=== PATIENT | female | born 1985 | race Caucasian/White ===

== ENCOUNTER 2022-07-16 10:28 | Outpatient (CLI) | payer OTHER, SELFPAY ==
[2022-07-16 13:00] LABS: Cholesterol* 231 mg/dL (90-199); Glucose* 75 mg/dL (60-115); HDL Cholesterol* 79 mg/dL (>=50); LDL Cholesterol Calculated 128 mg/dL (<100); Triglycerides* 121 mg/dL (40-149)
== END 2022-07-16 10:29 | disposition home or self-care (01) ==
PROVIDERS: Visit Provider Physician Assistant
DX: Z01.419 Encounter for gynecological examination (general) (routine) without abnormal findings (principal); Z13.6 Encounter for screening for cardiovascular disorders; Z13.1 Encounter for screening for diabetes mellitus
CPT/HCPCS: 80061; 82947

== ENCOUNTER 2022-12-18 15:57 | Inpatient (IN) | payer OTHER, SELFPAY ==
[2022-12-17] VITALS (19 sets, daily range): BP systolic 90–116; BP diastolic 52–78; PULSE 47–80; RESP 11–54; TEMP 35.8–37; O2SAT 98–100; BMI 26.1
[2022-12-17 08:51] LABS: Ur HCG Qualitative* Negative (Negative)
[2022-12-17] MEDS: LACTATED RINGERS 1000 ML 1,000 ML 100 ML IV (09:00)
[2022-12-17] MEDS: SODIUM CHLORIDE 0.9 % (FLUSH) 10 ML SYRINGE IVF (09:00)
[2022-12-17 09:23] LABS: Hemoglobin* 13.4 gm/dL (12.0-16.0)
[2022-12-17 09:37] LABS: Creatinine* 0.9 mg/dL (0.5-1.5); Est. Creatinine Clearance* 65.84; Estimated Glomerular Filt Rate 86 ml/min
--- NOTE | 2022-12-17 10:37 | W.ANESCHARGE ---
Anesthesia Charges Start Date/Time Anesthesia Start Date: 12/17/22 Anesthesia Start Time: 11:28 Stop Date/Time Anesthesia Stop Date: 12/17/22 Anesthesia Stop Time: 15:21
[2022-12-17] MEDS: CEFAZOLIN 2 GM INJ IVP (12:01)
--- NOTE | 2022-12-17 13:26 | P.NB_ITS ---
Nerve Block Nerve Block Time Seen by Provider: 11:33 Date Seen: 12/17/22 Type of block requested by surgeon for post-operative analgesia: TAP Side: bilateral Time out performed: Yes Verification of patient name: Yes Verification of date of : Yes Site marking: site marked Name of person performing procedure: Salvador Continuous monitoring Was continuous monitoring of O2 sat, B/P, classroom monitor, recorded every 15 minutes?: Yes Procedure Checklist: sterile prep, needles and gloves Ultrasound guided. Images saved: Yes Medications given in 5ml increments after negative aspiration: Marcaine %: 0.25 mL: 30 Needle gauge: 20 and Exparel mL: 10 Patient tolerated procedure well: Yes Additional comments: Needle noted adjacent to nerve Block Charges Block Charge (with Pro Fee): TAP Bilateral Use of Ultrasound Machine for Block: Yes- US Guidance/pain block
--- NOTE | 2022-12-17 13:29 | SUR.OPER ---
MD DILATED WITH EEA SIZERS
[2022-12-17] MEDS: BUPIVACAINE 0.25% 30 ML INJECTION (14:55)
--- NOTE | 2022-12-17 15:39 | W.ANESCHARGE ---
Anesthesia Charges Start Date/Time Anesthesia Start Date: 12/17/22 Anesthesia Start Time: 11:28 Stop Date/Time Anesthesia Stop Date: 12/17/22 Anesthesia Stop Time: 15:25
--- NOTE | 2022-12-17 15:43 | W.ANESCHARGE ---
Anesthesia Charges Start Date/Time Anesthesia Start Date: 12/17/22 Anesthesia Start Time: 11:28 Stop Date/Time Anesthesia Stop Date: 12/17/22 Anesthesia Stop Time: 15:25
--- NOTE | 2022-12-17 17:08 | P.GYNPRC_ITS ---
Procedure Note Date Seen: 12/17/22 Procedure Details: PREOPERATIVE DIAGNOSIS: Symptomatic uterine fibroids POSTOPERATIVE DIAGNOSIS: Symptomatic uterine fibroids TITLE OF OPERATION: 1. Total laparoscopic hysterectomy with bilateral salpingectomy 2. Cystoscopy 3. Repair vaginal lacerations SURGEON: Veronique Vincent MD AIR DRIER MACHINE OPERATOR: Vee Ledezma MD ANESTHESIA: General IV FLUIDS: 1800 mL crystalloid ESTIMATED BLOOD LOSS: 25 mL URINE OUTPUT: Not measured FINDINGS: 1. Upon pelvic exam under anesthesia, the hymeneal ring was initially intact. Vaginal caliber was small. Cervix was normal in appearance. Uterus was mobile and anteverted, bulky and markedly enlarged. 2. Upon laparoscopy, survey of the upper abdomen revealed a normal appearance to the inferior edge of the liver, gallbladder and stomach. Bowels were grossly normal appearance, as was the appendix. Survey of the pelvis revealed 1 large, pedunculated 5 fibroid originating from the left uterine fundus, as well as numerous visible fibroids that were at least partially subserosal at multiple sites. Bilateral tubes and ovaries were normal in appearance. The cul-de-sac and bladder reflection were normal in appearance. 3. On cystoscopy performed after completion of hysterectomy, bilateral ureteral jets were noted and there was no injury to the bladder dome. 4. On vaginal exam at end of procedure, the vaginal cuff was intact. There were small lacerations at the hymenal ring at 3 and 9 o'clock, which were bleeding slightly and extended slightly into the labia minora. 5. Uterine weight was 308 g. COMPLICATIONS: None PROCEDURE IN DETAIL: Patient was taken to the operating room with IV running. She received cefazolin in preoperative prophylaxis. She was positioned in dorsal lithotomy position with her legs fully supported in Yellofin stirrups. General anesthesia was administered. She was prepped and draped in the usual sterile fashion. Pelvic exam under anesthesia was performed for the above-noted findings. Speculum was inserted. Cervix visualized and grasped along its anterior lip with a single-tooth tenaculum. Cervix was dilated with Hegar dilators to accommodate the VCare uterine manipulator. A small-sized colpotomizer cup was selected. The tip of the uterine manipulator was inserted through the cervix into the uterine cavity and the balloon was inflated. The speculum was removed. The colpotomy cup was advanced, surrounding the cervix, and the proximal occluder was moved up along the shaft of the VCare and fixed in place. This was done with difficulty due to the small caliber of the patient's vagina. Smith catheter was placed. Patient's legs were then placed in neutral position. Attention was turned to patient's abdomen. A point approximately 4 cm inferior to the mid costal area in left upper quadrant was selected for the 1st port site, given the size of the uterus and fibroid and the patient's short torso. This area was infiltrated with a small amount of Marcaine. A 5 mm infraumbilical incision was made with a scalpel and carried down to the underlying layer of fascia with the hemostat. 5 mm camera was placed within the 5 mm Fios Kii trocar, and advanced under direct visualization through the anterior abdominal wall into the peritoneal cavity, while tenting up the anterior abdominal wall. The trocar was removed. The balloon was inflated, holding the port in place. Pneumoperitoneum was achieved. Survey of the abdomen and pelvis revealed the above-noted findings. Three additional port sites were created. The first was in the patient's right lower quadrant, just superomedial to the left ASIS. The second was in the patient's left lower quadrant, just superior medial to the left ASIS. The third was in the patient's umbilicus. An 5 mm incision was made at each of these sites, after assuring that large vessels were out of harm's way. A 5 mm Fios Kii port at each of these sites, under direct visualization and without complication. The balloon on each of the four ports was inflated, holding each in place. Attention was first turned to the left fallopian tube, which was divided from the mesosalpinx, using the Thunderbeat bipolar cautery device, proceeding laterally to medially, and the tube was amputated at the left uterine cornua. This was removed through the port site and sent to pathology. This procedure was repeated on the patient's right side, and the right fallopian tube was also amputated at the cornua and removed from the patient's abdomen. This was also sent to pathology for further analysis. The left round ligament was cauterized and transected with the Thunderbeat device. The utero-ovarian ligament was cauterized and transected, and the remnants of the right broad ligament were cauterized and transected between these two structures. The bladder flap was created on the patient's left side, moving laterally to medially. The left uterine artery was skeletonized, and noted to be quite large. However, Thunderbeat was used successfully to cauterize and transect the vessel. Using the colpotomizer cup as a guide, the peritoneum and underlying stroma was dissected off the anticipated site of colpotomy over the posterior vaginal fornix. Attention was then turned to the right side of the uterus, where the right round ligament was cauterized and transected with the Thunderbeat device. The right utero-ovarian ligament was cauterized and transected, and the remnants of the right round ligament were cauterized and transected between these two structures. The bladder flap was created on the patient's right side, and dissection was carried laterally to medially, meeting the dissection where it had left off from the patient's right side. The right uterine artery was cauterized and transected with the Thunderbeat device. The bladder reflection was moved well below the colpotomizer cup anteriorly. The vaginal fornix was then entered anteriorly with monopolar cautery, using the colpotomizer cup as a guide. This device was moved along the circumference of the colpotomizer cup, until the uterus and cervix were freed from their attachments to the pelvis. The balloon tip of the VCare uterine manipulator was deflated, and the uterus was pulled into the upper portion of the patient's abdomen. A proctosizer was inserted into the patient's vagina to maintain pneumoperitoneum. The 5 mm umbilical port was removed after the balloon tip was deflated. The skin incision was elongated slightly inferiorly. The fascia was grasped with Nicky clamps, and Tucker scissors was used to further incise the fascia to accommodate an 11 mm port. An 11 mm Bobo port was then inserted and the balloon tip inflated. A 2 0 V lock suture was inserted through this port. Using laparoscopic needle drivers, the vaginal cuff was closed in a running fashion, incorporating the distal most aspects of the uterosacral ligaments bilaterally into the closure. Closure proceeded from right to left, and then an additional stitch was placed moving more medially to assure that the closure remained intact. Suture was cut. Procto Sizer was later removed from the patient's vagina. The Bobo port in the umbilicus was then removed. The fascial opening at the umbilicus was lengthened to 3 cm. While holding up the anterior abdominal wall, an Dom Endo-Catch bag was inserted into the peritoneal cavity and moved into the patient's pelvis. The strings to cinch the bag closed were held through the incision. The Bobo port was initially replaced next to the strings of this bag through enlarged incision. The bag was opened by releasing the snaps. The uterus with attached fibroid were placed within the bag. The Bobo port was again removed, and the white ring along the edge of the bag was brought back through the incision and tightened down. The small Dom retractor was placed within this bag, within the incision, and was tightened, providing extra traction. Finally, the plastic ring protecting the sides of the incision was inserted and widened manually. The uterus was grasped with thyroid Tomer clamps and was manually morcellated with a scalpel, which successfully removed the entire specimen over an extended period of time. Once the specimen was removed, the specimen bag was removed from the patient's abdomen. The fascial edges of the umbilical incision were grasped with Nicky clamps, and this incision was closed with a running suture of 0 Vicryl. The Smith catheter was removed from the bladder, and the cystoscope was assembled with saline inflow, outflow, and light cord in place. The patient was given IV sodium fluorescein prior to the cystoscopy. Cystoscope was advanced through the urethra into the bladder, and survey of the mucosa revealed a normal appearance. The bladder dome was intact. Bilateral ureteral jets were noted. Cystoscope was removed and Smith catheter replaced. Patient's legs were again placed in neutral position. Insufflator was reattached to the port and pneumoperitoneum again achieved. Survey of the pelvis revealed hemostasis. The balloons of all remaining port sites were deflated, and all ports were removed after pneumoperitoneum was released. The skin of each port site was closed in a subcuticular fashion with 4 0 Monocryl. Surgical glue was applied above this. Finally, the hymeneal and labial lacerations were closed bilaterally with running sutures of 3-0 Vicryl. Hemostasis was noted. Patient tolerated procedure well and was taken to recovery area in stable condition.
[2022-12-17] MEDS: LACTATED RINGERS 1000 ML 1,000 ML 125 ML IV (17:25)
[2022-12-17] MEDS: KETOROLAC 30 MG/ML inj IVP ×2 (17:35→23:21)
[2022-12-17 17:39] LABS: Albumin* 3.8 g/dL (3.3-5.0)
[2022-12-17 17:42] LABS: Bilirubin Total* 0.3 mg/dL (0.1-1.5); Total Protein* 6.7 g/dL (6.0-8.3)
[2022-12-17 17:43] LABS: Alanine Aminotransferase* 32 U/L (4-35); Alkaline Phosphatase* 37 U/L (40-150); Aspartate Amino Transferase* 35 U/L (12-35)
--- NOTE | 2022-12-17 18:08 | PC.NURSE ---
Pt arrived to room 260 via hospital bed from PACU s/p lap hysterectomy with Dr. Vincent at 1612 pm. Please see initial assessment from PACU and frequent post op VS. Small amt of bleeding noted at umbilical lap stab wound site, replaced 2 by 2 gauze. Ice pack to site. Patient denies pain however her face appears slightly jaundice on arrival to floor. Primary RN notified grey goods tester Marisol Miller and Dr. Vincent was notified via phone. New orders for stat CBC and liver panel obtained. Blood drawn. Smith to DD with fluorescent yellow urine in catheter bag. Pt rating her pain 0-2 out of 10 at surgical site, my neck is stiff 5 out of 10. Scheduled dose of 30 mg IV toradol given with relief. Pt ordered [place] diet for dinner. Parents Ted and Jessi present and supportive at bedside. Dr. Vincent is in at pt's bedside at this time.
[2022-12-17 18:20] LABS: Basophils Percent Auto 0.1 % (0.0-3.0); Eosinophils Percent Auto 0.1 % (0.0-7.0); Hematocrit 39.9 % (33.0-51.0); Hemoglobin* 13.4 gm/dL (12.0-16.0); Immature Granulocytes Pct Auto 0.1 %; Lymphocytes Percent Auto 7.1 % (20-44); Mean Corpuscular HGB Conc 34 gm/dL (32-36); Mean Corpuscular Hemoglobin 33 pg (26-34); Mean Corpuscular Volume 97 fL (80-100); Monocytes Percent Auto 3.7 % (0.0-11.0); Neutrophils Percent Auto 88.9 % (42.0-72.0); Platelet Count* 285 K/uL (140-440); Red Blood Count 4.12 m/uL (4.00-5.20); White Blood Count* 14.77 K/uL (4.50-11.00)
[2022-12-17 18:29] LABS: Slide Review Reflex No
[2022-12-18] VITALS (7 sets, daily range): BP systolic 102–130; BP diastolic 65–85; PULSE 47–67; RESP 16; TEMP 36.6–36.9; O2SAT 98–100
[2022-12-18] MEDS: OXYCODONE 5 MG TABLET PO ×5 (00:28→21:12)
[2022-12-18] MEDS: MORPHINE 2 MG/ML inj IVP ×2 (03:46→12:41)
[2022-12-18 04:52] LABS: Hemoglobin* 11.6 gm/dL (12.0-16.0)
[2022-12-18] MEDS: ACETAMINOPHEN 500 MG TABLET 1000 MG PO ×3 (05:01→18:40)
[2022-12-18 05:07] LABS: Creatinine* 0.7 mg/dL (0.5-1.5); Est. Creatinine Clearance* 84.65; Estimated Glomerular Filt Rate 116 ml/min
[2022-12-18] MEDS: IBUPROFEN 600 MG TABLET PO ×3 (06:13→19:33)
--- NOTE | 2022-12-18 08:02 | PC.NURSE ---
[id number] Shift Summary? [address] 35 Total lap hysterectomy with bilateral salpingectomy, Cystoscopy, Repair vaginal lacerations? Hx: Polycystic ovarian syndrome? Pt?s pain managed overnight with more success in AM. Pain to LLQ/groin was 3-8/10. Pt hesitant to take narcotics but tolerated 5mg oxy well. Utilized 2mg morphine to bridge to PO med. Toradol DCed and ibuprofen started. Smith removed and backfilled for 240mL. Voided 150mL 30 minutes later. Pt declined Smith reinsertion.? would like to be paged after next void with amount and bladder scan results. Pt up to recliner and to BR with SBA. Lap sited CDI, no more drainage. Declined ice packs. On room air. BPs soft at baseline. PIV SLed. Advanced to regular diet. IS @ 1000mL. Educated about splinting. Plans to possibly DC to Mom?s Dad?s home today.?
[2022-12-18] MEDS: SIMETHICONE 80 MG TAB.CHEW 160 MG PO (15:31)
--- NOTE | 2022-12-18 15:58 | PC.NURSE ---
Nursing called to update Dr. Vincent that patient would like to stay another night for pain control. Nursing also requested oxycodone to be increased to 10mg q4H PRN.
--- NOTE | 2022-12-18 18:46 | PC.NURSE ---
[id number]: Patient remained vitally stable throughout shift. Patient reports pain ranging from 2-7/10 today. Patient feels uncomfortable going home with level of pain experienced today and would rather stay another day. Nursing requested provider increase oxycodone dose to 10mg and patient seemed to have better pain control with the 10 mg. Patient voiding well and ambulating around POD independently. Patient with no lightheadedness or dizziness noted. Patient incisions C/D/I. Patient taking PRN Tylenol and ibuprofen for pain control.
--- NOTE | 2022-12-18 21:45 | P.GYNPN_ITS ---
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 Enlarged fibroid uterus removed via minilaparotomy at umbilical port site Status: Acute Assessment and Plan: Given difficulties with pain control, will change to inpatient status and maintain hospitalized for another night. Increase oxycodone to 5-10 mg Q 4 hrs. Repeat Hb tomorrow. Anticipate discharge tomorrow. Postoperative Procedures: Procedures Operation Date: 12/17/22 10:10 Actual Procedure Side Surgeon p Total Laparoscopic Hysterectomy, Bilateral Salpingectomy, Cystoscopy, Repair of Vaginal Lacerations Veronique Vincent MD Postoperative day: 1 Postoperative status: marginal pain control Time Spent With Patient Time: Total time spent is greater than 50% in coordination of care (as documented) at patient's floor/unit and/or counseling patient: Time with patient: less than 15 minutes WORKERS COMPENSATION CLAIMS SUPERVISOR- PN:Subj Post-Op Subjective Time Seen by Provider: 12:30 Date Seen: 12/18/22 Post Operative Details: Post-operative day #1: status post total laparoscopic hysterectomy with bilateral salpingectomy and cystoscopy Brittney is struggling with pain control. Pain is crampy and sharp and in her low pelvis. She has just requested additional morphine. She is otherwise using oxy codone 5 mg Q 4 hrs and ibuprofen 600 mg Q 6 hrs. She was unable to tolerate backfill of bladder with 300 cc; she tolerated 240 cc and voided 150 cc. She has been able to void without difficulty since. She is tolerating a regular diet without nausea. She hasn't passed flatus yet. She is ambulating a little, but this is limited by pain. WORKERS COMPENSATION CLAIMS SUPERVISOR-PN: Obj Exam Physical Exam: Vital signs: Temp Pulse Resp BP Pulse Ox O2 Del Method 98 F 47 L 16 118/80 100 Room Air 12/18/22 19:46 12/18/22 19:46 12/18/22 19:46 12/18/22 19:46 12/18/22 19:46 12/18/22 19:46 Narrative: General: Pleasant, appears pained and tearful Heart: Regular rate and rhythm, no murmur or gallop Lungs: Clear to auscultation bilaterally Abdomen: NABS, soft, appropriately tender, no distention / rebound / guarding. Incisions clean / dry / intact. Bruising noted around umbilical incision. Lower extremities: No edema or erythema Urinary Catheter Management: Urethral: Cath placed during this visit: yes Urethral indwelling: No Reason for continuing: surgical procedure Insertion date: 12/17/22 Insertion time: 12:05 WORKERS COMPENSATION CLAIMS SUPERVISOR - PN: Obj Data Labs Labs: Laboratory Results - last 24 hr 12/18/22 04:45 Hgb 11.6 L Creatinine 0.7 Estimated Creat Clear 84.65 Estimated GFR 116
[2022-12-19] MEDS: ACETAMINOPHEN 500 MG TABLET 1000 MG PO ×2 (02:50→08:29)
[2022-12-19] MEDS: IBUPROFEN 600 MG TABLET PO ×2 (02:51→08:29)
[2022-12-19 03:00] VITALS: BP 113/78; PULSE 53; RESP 16; TEMP 36.6; O2SAT 99
--- NOTE | 2022-12-19 04:54 | PC.NURSE ---
Shift note: Surgical lap sites are dry and intact, surrounding skin is intact and pink. Bowel sounds are active and pt feels the gas moving but hasn't pass the flatus yet. She rates pain 4-5/10, RN treated per eMAR with relief to 2/10, pt is walking around the [place], and is independent in the room. Voiding large amounts, some bloodily discharge with urine. Pt tolerates food and fluids PO with no c/o nausea.
[2022-12-19 06:51] LABS: Hemoglobin* 11.9 gm/dL (12.0-16.0)
[2022-12-19 08:02] VITALS: BP 116/67; PULSE 64; RESP 14; TEMP 37.3; O2SAT 100
[2022-12-19 08:15] VITALS: RESP 16
--- NOTE | 2022-12-19 09:44 | P.DS_ITS ---
DS: Providers Provider Date Seen: 12/19/22 Date of admission: 12/18/22 15:57 Primary care physician: Angeles Domínguez PA-C Admitting Clinician: Veronique Vincent MD Attending Physician on discharge: Veronqiue Vincent MD Date of Discharge: 12/19/22 DS: Diagnosis Discharge Diagnosis (1) S/P laparoscopic hysterectomy: Status: Acute Problem details: total laparoscopic hysterectomy, bilateral salpingectomy, cystoscopy, repair of vaginal lacerations 12/17/22. 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 Indication for surgery: Symptomatic uterine fibroids. Intraoperative findings were notable for enlarged uterus with numerous fibroids, the largest approximately 8 cm and extending from the left fundus. She had an uncomplicated surgery. The uterus and attached fibroid were removed through a mini-laparotomy at the umbilical port site. She had small vaginal lacerations around the hymeneal ring that were also repaired. Her postoperative course was notable for difficulties with pain control on postoperative day 1. She required IV narcotics that day, and was kept inpatient until today, postoperative day 2. Today, she reports that pain has improved. She is ambulating and urinating without difficulty. She has some blood when she urinates. She is tolerating regular diet and has passed flatus. Vitals have been stable. She has remained afebrile. Time Spent with Patient Time attestation: Total time spent providing and/or coordinating discharge services: ENVIRONMENTAL HEALTH SAFETY MANAGER - Exam Physical Exam: Vital signs: Temp Pulse Resp BP Pulse Ox O2 Del Method 99.2 F 64 14 116/67 100 Room Air 12/19/22 08:02 12/19/22 08:02 12/19/22 08:02 12/19/22 08:02 12/19/22 08:02 12/19/22 08:02 Narrative: General: Pleasant, no acute distress Heart: Regular rate and rhythm, no murmur or gallop Lungs: Clear to auscultation bilaterally Abdomen: Normoactive bowel sounds. Soft, nontender, no rebound or guarding, laparoscopic incisions clean, dry, intact Lower extremities: No edema or erythema ENVIRONMENTAL HEALTH SAFETY MANAGER - DS: Data Data Completed and Pending Labs on day of discharge: Labs from last 24 hours 12/19/22 05:51 Hgb 11.9 L Hemoglobin improved from 11.6 yesterday Procedures Procedures: Procedures Operation Date: 12/17/22 10:10 Actual Procedure Side Surgeon p Total Laparoscopic Hysterectomy, Bilateral Salpingectomy, Cystoscopy, Repair of Vaginal Lacerations Veronique Vincent MD Discharge Plan Discharge Disposition: Home, Self-Care Date of Admission: 12/18/22 15:57 Attending Provider on Discharge: Veronique Vincent Primary Care Provider: Angeles Domínguez Condition: Improved Anticipated Discharge Date/Time: 12/19/22 09:47 Discharge Medications: New acetaminophen 500 mg Tablet 1,000 mg PO Q6H PRN (Reason: Pain) Qty: 0 0RF ibuprofen 600 mg Tablet 600 mg PO Q6H PRN (Reason: Pain) Qty: 60 0RF oxycodone 5 mg Tablet 5 - 10 mg PO Q4H PRN (Reason: Moderate Pain) Qty: 25 0RF docusate sodium [Colace] 100 mg capsule 100 mg PO BID PRNQty: 20 0RF Continued multivitamin [Daily Multi-Vitamin] Tablet 1 tab PO QAM Discontinued drospirenone-ethinyl estradiol [Adrienne (28)] 3-0.02 mg tablet 1 tab PO QDAY Qty: 84 3RF peg 3350-electrolytes [Golytely] 236-22.74-6.74 -5.86 gram recon soln 240 ml PO Q15M Qty: 4000 0RF Rx Instructions: Per endoscopy instructions. Discharge Orders: Discharge Order (Routine); Ordered 12/19/22 Ordered By: Veronique Vincent Patient Education: Laparoscopic Hysterectomy (DC) Activity Level: Activity as Tolerated Discharge Diet: Regular Follow Up Appointments: Angeles Domínguez PA-C [Primary Care Provider] - Veronique Vincent MD [Staff Physician] - Forms: [employer] Info Instructions Discharge Comments: Follow up at 2 and 6 weeks in clinic
[2022-12-19] MEDS: OXYCODONE 5 MG TABLET PO (10:36)
[2022-12-19 12:06] VITALS: BP 108/65; PULSE 54; RESP 16; TEMP 37.3
== END 2022-12-19 13:10 | disposition home or self-care (01) | DRG 742 ==
LOC: OR 16:24 → MEDSURG 16:24
PROVIDERS: Admitting Provider Obstetrics & Gynecology; PCP Physician Assistant; Visit Provider Obstetrics & Gynecology
PROC: 0UT94ZZ Resection of Uterus, Percutaneous Endoscopic Approach (ICD-10-PCS; principal; 2022-12-17 10:00)
DX: D25.2 Subserosal leiomyoma of uterus (principal); N99.71 Accidental puncture and laceration of a genitourinary system organ or structure during a genitourinary system procedure; G89.18 Other acute postprocedural pain
CPT/HCPCS: 00840; 36415; 51798; 64488; 76942; 80076; 81025; 82565; 85018; 85025; 86850; 86900; 86901; 88307; A9270; C9290; J0330; J0690; J1100; J1885; J2250; J2270; J2405; J2704; J2710; J3010; J3475; J3490; J7120

== ENCOUNTER 2023-07-15 14:24 | Outpatient (CLI) | payer OTHER, SELFPAY ==
--- OUTSIDE RECORDS SUMMARY | 2023-07-15 14:29 | XMS_ITS | Clinical Summary ---
Author Name Unknown Organization [facility] Address [address] [place] [address] Care Team Providers Care Millinery Salesperson Name Role Phone Loretta Ryder MD Primary Care Provider [phone] Source Comments You are receiving this document as you are listed as the primary care provider,follow-up provider, or the patient has been referred to you for consultation.This is in compliance with the Medicare and[facility] EHR Incentive Program,which states Providers who transition their patient to another setting of careor provider of care or refers their patient to another provider of care shouldprovide summary care record for each transition of care or referral. [place] [facility] Allergies No known active allergies Medications Medication Sig Dispensed Refills Start Date End Date Status rabies vaccine (RABAVERT) injectionIndications: Need for prophylactic vaccination and inoculation against rabies Give 1 injection on day 0, then 1 injection on day 7 and on day 21 3 0 10/07/2009 Active Additional Information Patient not taking.Reported on 03/30/2023 benzoyl peroxide (AKA BENZAC AC WASH) 5 % external liquidIndications:Acn e Apply topically two times a day. 237 mL 1 03/06/2010 Active Additional Information Patient not taking.Reported on 03/30/2023 clindamycin (AKA CLEOCIN T) 1 % gelIndications:Acne Apply topically two times a day. 60 g 2 07/16/2010 Active Additional Information Patient not taking.Reported on 03/30/2023 Active Problems Problem Noted Date Diagnosed Date Plantar wart 06/26/2009 Nevus 06/26/2009 Acne 06/22/2008 Immunizations Name Administration Dates Next Due DTP 07/08/1988,07/01/1987,04/29/1987 ,02/25/1987 DTaP 01/23/1992 HepB Ped/Adol (0-18 yrs) 09/15/1999,12/27/1998,0 10/01/1998 Hib (HbOC) 01/12/1989 MCV4 (Menactra) 11/24/2005 MMR 04/17/1996,04/03/1988 OPV, Trivalent (Orimune or tOPV) 01/23/1992,10/1988,04/29/1987,02/25/1987 Rabies 11/08/2009,10/25/2009,10/18/2009 TB Skin Test (PPD) 11/24/2005 Td 10/01/1998 Tdap 06/22/2008 Varicella 10/02/1998(Deferred: Immune by Stefani mitchell) Family History Medical History Relation Name Comments Cataract Maternal Grandfather Coronary Artery Disease Maternal Grandfather late 60's Cancer, Other Maternal Grandmother bone Cataract Maternal Grandmother Cataract Paternal Grandfather Cancer, Ovary Paternal Grandmother Cataract Paternal Grandmother Relation Name Status Comments Father Alive Mother Alive Maternal Grandfather Maternal Grandmother Paternal Grandfather Paternal Grandmother Social History Tobacco Use Types Packs/Day Years Used Date Smoking Tobacco: Never Comments:smoke free home Alcohol Use Standard Drinks/Week Comments No 0 (1 standard drink = 0.6 oz pur e alcohol) Sex and Gender Information Value Date Recorded Sex Assigned at Not on file Gender Identity Not on file Sexual Orientation Not on file Last Filed Vital Signs Vital Sign Reading Time Taken Comments Blood Pressure 112/73 03/30/2023 10:45 AM CDT Pulse 47 03/30/2023 10:45 AM CDT norm al per Pt Temperature 36.7 ??C (98 ??F) 03/30/2023 10:45 AM CDT Respiratory Rate 16 03/30/2023 10:45 AM CDT Oxygen Saturation 100% 03/30/2023 10:45 AM CDT Inhaled Oxygen Concentration - - Weight 63 kg (139 lb) 03/06/2010 2:03 PM CDT Height 156.2 cm (5' 1.5) 06/26/2009 9:05 AM CALL CENTER SPECIALIST Body Mass Index 25.84 06/26/2009 9:05 AM CALL CENTER SPECIALIST Plan of Treatment Health Maintenance Due Date Last Done Comments Hep C Screening (Preventive Services) 1986 COVID-19 Vaccine (#1) 06/27/1987 HIV Screening (Preventive Services) 2002 Cervical Cancer Screening Due 06/27/2009 06/26/2009 Adult Preventive Visit 06/26/2011 9, 06/22/2008, 11/24/2005, Additional history exists Influenza (#1) 2023 05/14/2022, 01/2021, 05/02/2020, Additional history exists DTaP/Tdap/Td (8 - Tdap) 07/02/2030 07/02/20 20, 06/22/2008, 10/01/1998, Additional history exists Zoster/Shingles (1 of 2) 2036 Hib Completed 01/12/1989 IPV (Polio) Completed 01/23/1992, 10/1988, 04/29/1987, Additional history exists HepB Completed 09/15/1999, 12/04, 10/01/1998 MCV4 Completed 11/24/2005, 11/24/2005 HPV Vaccine Aged Out No longer eligi ble based on patient's age to complete this topic HepA Aged Out No longer eligi ble based on patient's age to complete this topic Pneumococcal Aged Out No longer eligi ble based on patient's age to complete this topic Care Teams Millinery Salesperson Relationship Specialty [place] [address] [place] [address] PCP - General 06/11/09
--- OUTSIDE RECORDS SUMMARY | 2023-07-15 14:29 | XMS_ITS | Referral Summary ---
Author Name Unknown Organization [facility] Address [address] [place] [address] Care Team Providers Care Milk Receiver Tank Truck Name Role Phone [facility] Primary Care Provider [phone] Allergies Active Allergy Reactions Criticality Noted Date Comments Latex Hives 03/30/2023 Penicillins Hives 03/30/2023 Medications Medication Sig Dispensed Refills Start Date End Date Status busPIRone (BUSPAR) 10 MG tablet Take 10 mg by mouth every morning 0 Active Vit-Fe Fumarate-FA ( MULTIVITAMIN PLUS IRON) 27-1 MG TABS Take 1 tablet by mouth daily 0 Active Pyridoxine HCl (VITAMIN B-6 PO) Take 1 tablet by mouth daily 0 Active doxylamine (UNISOM) 25 MG TABS tablet Take 25 mg by mouth At Bedtime 0 Active Active Problems Problem Noted Date Diagnosed Date RLQ abdominal pain 03/30/2023 History of underactive thyroid 07/06/2012 Immunizations Name Administration Dates Next Due Influenza (IIV3) PF 05/04/2012,07/29/2010 Meningococcal (Menomune??) 11/24/2005 Rabavert 11/08/2009,10/25/2009,10/18/2009 TDAP Vaccine (Adacel) 06/22/2008 Social History Tobacco Use Types Packs/Day Years Used Date Smoking Tobacco: Never Alcohol Use Standard Drinks/Week Comments Yes 0 (1 standard drink = 0.6 oz pur e alcohol) occassional Adolescent Education Answer Date Record ed Getting School Help Needed Not on file 03/30 Sex and Gender Information Value Date Recorded Sex Assigned at Not on file Gender Identity Not on file Sexual Orientation Not on file Last Filed Vital Signs Vital Sign Reading Time Taken Comments Blood Pressure 105/67 03/31/2023 7:23 AM CDT Pulse 54 03/31/2023 7:23 AM CDT Temperature 36.7 ??C (98 ??F) 03/31/2023 7:23 AM CDT Respiratory Rate 16 03/31/2023 7:23 AM CDT Oxygen Saturation 100% 03/31/2023 7:23 AM CDT Inhaled Oxygen Concentration - - Weight 64 kg (141 lb) 07/06/2012 8:52 AM PADDED PRODUCTS INSPECTOR TRIMMER Height 154.9 cm (5' 1) 03/30/2023 2:18 PM CDT Body Mass Index 26.64 07/06/2012 8:52 AM PADDED PRODUCTS INSPECTOR TRIMMER Plan of Treatment Not on file Advance Directives For more information, please contact: [phone] Latest Code Status on File Code Status Date Activated Date Inactivated Comments Full Code 03/30/2023 7:20 PM 03/31/2023 12:33 PM All basic and advanced life-sustaining interventions are performed as appropriate Question Answer Comments Code status determined by: Discussion with patient/ legal decision maker Care Teams Milk Receiver Tank Truck Relationship Specialty Start Date End Date [facility] [place] [address] [place] [address] PCP - General 03/30/23
--- OUTSIDE RECORDS SUMMARY | 2023-07-15 14:29 | XMS_ITS | Encounter Summary ---
Author Name Unknown Organization [facility] Address [address] [place] [address] Care Team Providers Care Account Manager Name Role Phone Lilia Arango MD Primary Care P rovider [facility] Primary Care Provider [phone] Reason for Visit * Reason Onset Date Comments Outreach 09/25/2014 [facility] Att 1,2,3 Encounter Details Date Type Department Care Team (Late st Contact Info) Description 09/25/2014 Telephone [facility] [id number] [place] [phone] Lilia Arango MD [facility] [address] [place], [place] [id number] Outreach ([facility] Att 1,2,3) Social History Tobacco Use Types Packs/Day Years Used Date Smoking Tobacco: Never Alcohol Use Standard Drinks/Week Comments Yes 0 (1 standard drink = 0.6 oz pur e alcohol) occassional Sex and Gender Information Value Date Recorded Sex Assigned at Not on file Gender Identity Not on file Sexual Orientation Not on file documented as of this encounter Miscellaneous Notes * Telephone Encounter - Kody Rai - 10/29/2014 1:07 PM CDT 10/29/2014 Call Regarding ReattributionPhysical Attempt 3 Message on voicemail Comments: Outreach Nurses' Aide rbg * Telephone Encounter - Lola Guillermo - 10/10/2014 12:39 PM CDT 10/10/2014 Call Regarding ReattributionPhysical Attempt 2 Message on voicemail Comments: Outreach Nurses' Aide Lola Baer * Telephone Encounter - Kody Rai - 09/25/2014 3:18 PM CDT 09/25/2014 Call Regarding ReattributionPhysical Attempt 1 Message on voicemail Comments: Outreach Nurses' Aide rbg documented in this encounter Plan of Treatment Not on file documented as of this encounter Visit Diagnoses Not on filedocumented in this encounter Care Teams Account Manager Relationship Specialty Start Date End Date Lilia Arango MD PCP - General Family Practice 07/15/10 03/29/23 [facility] [address] [address] PCP - General 03/30/23 documented as of this encounter
--- OUTSIDE RECORDS SUMMARY | 2023-07-15 14:29 | XMS_ITS | Clinical Summary ---
Author Name Unknown Organization [facility] Address [address] [place] [address] Care Team Providers Care Elevator Worker Name Role Phone [facility] Primary Care Provider [phone]- [phone] Allergies Active Allergy Reactions Criticality Noted Date [...] 11/24/2005 Rabavert 11/08/2009,10/25/2009,10/18/2009 TDAP Vaccine (Adacel) 06/22/2008 Family History Medical History Relation Comments Cardiovascular Maternal Grandfather Cancer Maternal Grandmother bone, high cholesterol diet controlled Cancer Paternal Grandmother ovarian Cerebrovascular Disease No family hx of Diabetes No family hx of Glaucoma No family hx of Hypertension No family hx of Macular Degeneration No family hx of Thyroid Disease No family hx of Relation Status Comments Father Alive Maternal Grandfather Alive Maternal Grandmother Mother Alive Paternal Grandfather Alive Paternal Grandmother Alive Sister Alive Social History Tobacco Use Types Packs/Day Years [...] 64 kg (141 lb) 07/06/2012 8:52 AM SPECIAL EDUCATION SECRETARY Height 154.9 cm (5' 1) 03/30/2023 2:18 PM CDT Body Mass Index 26.64 07/06/2012 8:52 AM SPECIAL EDUCATION SECRETARY Plan of Treatment Health Maintenance Due Date Last Done Comments ADVANCE CARE PLANNING 1986 ANNUAL REVIEW OF HM ORDERS 1986 HIV SCREENING 2001 HEPATITIS C SCREENING 2004 YEARLY PREVENTIVE VISIT 07/06/2013 07/06/19 13, 07/29/2010, 06/26/2009, Additional history exists PAP 07/06/2015 07/06/2012, 07/29/2010 PHQ-2 (once per calendar year) 2022 COVID-19 Vaccine ( season) 2023 03/25/2022, 05/17/2021, 10/17/2020, Additional history exists INFLUENZA VACCINE (#1) 2023 2, 04/10/2021, 05/02/2020, Additional history exists DTAP/TDAP/TD IMMUNIZATION (8 - Td or Tdap) 07/02/2030 07/02/2020, 06/22/2008, 10/01/1998, Additional history exists IPV IMMUNIZATION Completed 01/23/1992, 10/1988, 04/29/1987, Additional history exists HEPATITIS B IMMUNIZATION Completed 000, 12/27/1998, 10/01/1998 MENINGITIS IMMUNIZATION Aged Out 11/24/2005, 11/24 No longer eligible based on patient's age to complete this topic HPV IMMUNIZATION Aged Out No longer e ligible based on patient's age to complete this topic Pneumococcal Vaccine: Pediatrics (0 to 5 Years) and At-Risk Patients (6 to 64 Years) Aged Out No longer eligible based on patient's age to complete this topic RSV MONOCLONAL ANTIBODY Aged Out No l onger eligible based on patient's age to complete this topic Advance Directives For more information, please contact: [phone] Latest Code Status on File Code Status Date Activated Date Inactivated Comments Full Code 03/30/2023 7:20 PM 03/31/2023 12:33 PM All basic and advanced life-sustaining interventions are performed as appropriate Question Answer Comments Code status determined by: Discussion with patient/ legal decision maker Care Teams Elevator Worker Relationship Specialty Start Date End Date [facility] [place] [address] [place] [address] PCP - General 03/30/23
--- OUTSIDE RECORDS SUMMARY | 2023-07-15 14:29 | XMS_ITS | Encounter Summary ---
Author Name Unknown Organization [facility] Address [address] [place] [address] Care Team Providers Care Custom Tailor Apprentice Name Role Phone Loretta Ryder MD Primary Care Provider [phone] Encounter Details Date Type Department Care Team Description 03/30/2023 11:30 AM CDT Lab Visit [facility] [address] [place] [phone] Right lower quadrant abdominal pain Social History Tobacco Use Types Packs/Day Years Used Date Smoking Tobacco: Never Comments:smoke free home Alcohol Use Standard Drinks/Week Comments No 0 (1 standard drink = 0.6 oz pur e alcohol) Sex and Gender Information Value Date Recorded Sex Assigned at Not on file Gender Identity Not on file Sexual Orientation Not on file documented as of this encounter Plan of Treatment Not on file documented as of this encounter Procedures Procedure Name Priority Date/Time Associated Diagnosis Comments UA CONDITIONAL UC STAT 03/30/2023 11: 44 AM CDT Right lower quadrant abdominal pain CBC AND DIFFERENTIAL PANEL STAT 03/30/2023 11:29 AM CDT Right lower quadrant abdominal pain COMPLETE BLOOD COUNT-W/DIFF STAT 03/30/2023 11:29 AM CDT Right lower quadrant abdominal pain documented in this encounter Results * (ABNORMAL) UA Conditional UC: Clean Catch (03/30/2023 11:44 AM CDT) Urine Culture Comment Urinalysis results do not meet criteria for urine culture reflex. 03/30/2023 11:55 AM [facility] Urine Color Yellow 03/30/2023 11:55 AM [facility] Urine Clarity Clear Clear 03/30/2023 11:55 AM [facility] Specific [place], Urine 1.015 1.005 - 1.030 03/30/2023 11:55 AM [facility] PH Urine 8.5(A) 5.0 - 8.0 03/30/2023 11:55 AM [facility] Protein, Urine Qual (mg/dL) Trace Neg/Trace 03/30/2023 11:55 AM [facility] Glucose Urine Qual (mg/dL) Negative Negative 03/30/2023 11:55 AM [facility] Ketones, Urine (mg/dL) Negative Negative 03/30/2023 11:55 AM [facility] Urobilinogen, Urine (EU/dL) 0.2 <2.0 03/30/2023 11:55 AM [facility] Bilirubin Urine Negative Negative 03/30/2023 11:55 AM [facility] Blood, Urine Negative Neg/Trace 03/30/2023 11:55 AM [facility] Nitrite Urine Negative Negative 03/30/2023 11:55 AM [facility] Leukocyte Est. Negative Negative 03/30/2023 11:55 AM [facility] Red Blood Cells 0-3 0 - 3 /HPF 03/30/2023 11:55 AM [facility] White Blood Cells 0-5 0 - 5 /HPF 03/30/2023 11:55 AM [facility] Bacteria Moderate(A) None Seen /HPF 03/30/2023 11:55 AM [facility] Squamous Epithelial Cells Moderate(A) None Seen, Occasional, Few /HPF 03/30/2023 11:55 AM [facility] Urine Source Clean Catch 03/30/2023 11:55 AM [facility] Urine URINE SPECIMEN COLLECTION, CLEAN CATCH / Unknown Non-blood Collection / Unknown 03/30/2023 11:44 AM CDT 03/30/2023 11:44 AM CDT Nikia Isbell MD LAB_1 [facility] [address] [place] [address], [facility] [phone] * (ABNORMAL) Complete Blood Count-W/Diff (03/30/2023 11:29 AM CDT) WBC 10.5 3.5 - 10.5 x10(9)/L 03/30/2023 11:38 AM [facility] RBC 4.25 3.90 - 5.03 x10(12)/L 03/30/2023 11:38 AM [facility] Hemoglobin 13.4 12.0 - 15.5 g/dL 03/30/2023 11:38 AM [facility] HCT 39.1 34.9 - 44.5 % 03/30/2023 11:38 AM [facility] MCV 92.0 80.0 - 100.0 fL 03/30/2023 11:38 AM [facility] MCH 31.5 27.6 - 33.3 pg 03/30/2023 11:38 AM [facility] MCHC 34.3 31.5 - 35.2 g/dL 03/30/2023 11:38 AM [facility] RDW 12.0 11.9 - 15.5 % 03/30/2023 11:38 AM [facility] Platelets 269 150 - 450 x10(9)/L 03/30/2023 11:38 AM [facility] Neutrophil Absolute 8.9(H) 1.7 - 7.0 10(9)/L 03/30/2023 11:38 AM [facility] Lymphocyte Absolute 0.9(L) 1.0 - 4.8 10(9)/L 03/30/2023 11:38 AM CDT [facility] Monocyte Absolute 0.6 0.2 - 0.9 10(9)/L 03/30/2023 11:38 AM [facility] Eosinophil Absolute 0.0 0.0 - 0.5 10(9)/L 03/30/2023 11:38 AM CDT [facility] Basophil Absolute 0.1 0.0 - 0.3 10(9)/L 03/30/2023 11:38 AM CDT [facility] Immature Granulocyte % 0.1 0.0 - 0.5 % 03/30/2023 11:38 AM CDT [facility] Blood Venipuncture / Unknown 03/30/2023 11:29 AM CDT 03/30/2023 11:29 AM CDT Nikia Isbell MD [facility] [address] [place] [address], [facility] [phone] documented in this encounter Visit Diagnoses Diagnosis Right lower quadrant abdominal pain Abdominal pain, right lower quadrant documented in this encounter Care Teams Custom Tailor Apprentice Relationship Specialty [place] [address] [place] [address] PCP - General 06/11/09 documented as of this encounter
--- OUTSIDE RECORDS SUMMARY | 2023-07-15 14:29 | XMS_ITS | Encounter Summary ---
Author Name Unknown Organization [facility] Address [address] [place] [address] Care Team Providers Care Apparel Rental Clerk Name Role Phone [facility] Primary Care Provider [phone] Encounter Details Date Type Department Care Team (Latest Contact Info) Description 03/30/2023 Travel Social History Tobacco Use Types Packs/Day Years [...] on file Sexual Orientation Not on file COVID-19 Exposure Response Date Recorded In the last 10 days, have yo u been in contact with someone who was confirmed or suspected to have Coronavirus/COVID-19? No / Unsure 03/30/2023 2:13 PM CDT documented as of this encounter Plan of Treatment Not on file documented as of this encounter Visit Diagnoses Not on filedocumented in this encounter Care Teams Apparel Rental Clerk Relationship Specialty Start Date End Date [place] [address] [place] [address] PCP - General 03/30/23 documented as of this encounter
--- OUTSIDE RECORDS SUMMARY | 2023-07-15 14:29 | XMS_ITS | Encounter Summary ---
Author Name Unknown Organization [employer] Address [address] [place] [id number] Care Team Providers Care Patient Educator Name Role Phone [place], [facility] Primary Care Provider [phone] Reason for Visit * Reason Comments ovarian torsion Encounter Details Date Type Department Care Team (Late st Contact Info) Description 03/30/2023 2:22 PM CDT - 03/31/2023 10:33 AM CDT [facility] Observation Dept [address] [place] [id number] Osvaldo Schneider MD [facility] [address] [place] [address] Maria Eugenia Jeffers MD [address] [address] RLQ abdominal pain Discharge Disposition: Home or Self Care Social History Tobacco Use Types Packs/Day Years [...] PM CDT documented as of this encounter Last Filed Vital Signs Vital Sign Reading Time Taken Comments Blood Pressure 105/67 03/31/2023 7:23 AM CDT Pulse 54 03/31/2023 7:23 AM CDT Temperature 36.7 ??C (98 ??F) 03/31/2023 7:23 AM CDT Respiratory Rate 16 03/31/2023 7:23 AM CDT Oxygen Saturation 100% 03/31/2023 7:23 AM CDT Inhaled Oxygen Concentration - - Weight - - Height 154.9 cm (5' 1) 03/30/2023 2:18 PM CDT Body Mass Index - - documented in this encounter Medications at Time of Discharge Medication Sig Dispensed Refills Start Date End Date busPIRone (BUSPAR) 10 MG tablet Take 10 mg by mouth every morning 0 doxylamine (UNISOM) 25 MG TABS tablet Take 25 mg by mouth At Bedtime 0 Vit-Fe Fumarate-FA ( MULTIVITAMIN PLUS IRON) 27-1 MG TABS Take 1 tablet by mouth daily 0 Pyridoxine HCl (VITAMIN B-6 PO) Take 1 tablet by mouth daily 0 documented as of this encounter Progress Notes * Rosa Arana MD - 03/31/2023 8:46 AM CDT Gynecology Progress Note S: Feeling better this morning. Maybe slight discomfort, but minimal. No nausea or vomiting. O: Vitals: 03/30/23203703/31/23 0014 03/31/23 0443 03/31/23 0723 BP: 107/62 91/53 97/56 105/67 BP Location: Right arm Right arm Right arm Pulse: (!) 44 (!) 44 (!) 43 54 Resp: 16 12 15 16 Temp: 98.2 ??F (36.8 ??C) 97.8 ??F (36.6 ??C) 98 ??F (36.7 ??C) TempSrc: Oral Oral Oral SpO2: 98% 97% 100% 100% Height: General: NAD, comfortable in bed Resp: breathing comfortably on room air Abdomen: soft, non-tender to deep palpation : deferred Extremities: no LE edema A/P: 37 year old s/ TLH 3 months ago, HD#2 admitted for RLQ pain, enlarged right ovary, possible ovarian torsion. Pain improved this morning. Repeat US last night stable. Discussed reassuring exam and improvement in pain is reassuring. Recommend discharge home with close follow-up. Discussed ideally avoiding surgery unless pain increases/becomes severe. We discussed risks of surgery, and limitations with surgery when no cyst/mass is present, including potential of oophorectomy, which ideally isavoided unless necessary. Patient is in agreement. - Discharge to home. - Warning signs and when to call discussed. - If pain recurs, plan for exploratory laparoscopy. - Phone number given for follow-up. Plan office visit with repeat pelvic ultrasound. Patient prefers to follow-up with our office. MD Ricardo Charlton [address] MAGISTRATE 03/31/2023 8:51 AM * Maria Eugenia Jeffers MD - 03/30/2023 7:15 PM CDT OBGYN Progress Note: Repeat US unchanged. Right ovary still enlarge, + doppler flow. Pt still with minimal to moderate pain, exam not c/w acute abdomen. Pt reluctant to go home as she feels something is wrong. Offered obs admission overnight, NPO after midnight, with possibility of exploratory laparoscopy tomorrow if pain persists/worsens. Maria Eugenia Jeffers MD 7:17 PM documented in this encounter Consult Notes * Brittney Hooker MD - 03/30/2023 3:47 PM CDT HOSPITAL LIBRARIAN Admission Note HPI: Pt is a 37 year old nulligravida who is s/p TLH/bilateral salpingectomy in December who presented to ED c/o right lower quadrant pain. She woke up this AM initially feeling well but soon after noticed some right sided pain. She went to work and the pain increased as the morning progressed becomingsevere. She then went to . In her UA was unremarkable (some bacteria). CBC was normal. U/S showed: Uterus: Surgically absent. Right Ovary: Measures 5.8 x 4.0 x 3.5 cm, volume of 42.5 cc. Ovarian parenchyma appears heterogeneous and edematous compared to the left ovary. Right Ovary Blood Flow: Present. Left Ovary: Measures 3.9 x 2.3 x 2.4 cm and appears unremarkable Left Ovary Blood Flow: Present. Free Fluid: no significant free fluid. No suspicious adnexal masses. IMPRESSION: 1. Asymmetric enlargement of the right ovary with a heterogeneous/edematous appearance. While low resistance arterial flow was demonstrated throughout the right ovary, intermittent torsion should be considered given acute onset of pain and inability to tolerate transvaginal scan. Recommend TRAFFIC [address] MAGISTRATE consultation for further evaluation. 2. Status post hysterectomy. With this result, she was sent to ED. In ED, she has had oxycodone and tylenol x 1 at 2:45 pm. She denies N/V, fevers, chills. No issues with BMs or urination. Pain has started to decrease a little. OBHx: NA GynHx: S/P TLH/bilateral salpingectomy in December 2022 due to fibroids. Denies h/o abnormal paps Med Hx: Healthy Surg Hx: TLH/bilateral salpingectomy in December 2022 Meds: none Allergies: Allergies Allergen Reactions Nkda [No Known Drug Allergy] Soc Hx: Social History Socioeconomic History Marital status: Single Spouse name: Not on file Number of children: Not on file Years of education: Not on file Highest education level: Not on file Occupational History Not on file Tobacco Use Smoking status: Never Smokeless tobacco: Not on file Substance and Sexual Activity Alcohol use: Yes Comment: occassional Drug use: No Sexual activity: Not Currently Other Topics Concern Parent/sibling w/ CABG, CA or angioplasty before 65F 55M? Not Asked Social History Narrative Not on file Social Determinants of Health Financial Resource Strain: Not on file Food Insecurity: Not on file Transportation Needs: Not on file Physical Activity: Not on file Stress: Not on file Social Connections: Not on file Interpersonal Safety: Not on file Housing Stability: Not on file Fam Hx: Family History Problem Relation Age of Onset Cancer Maternal Grandmother bone, high cholesterol diet controlled Cardiovascular Maternal Grandfather Cancer Paternal Grandmother ovarian Glaucoma No family hx of Macular Degeneration No family hx of Thyroid Disease No family hx of Diabetes No family hx of Hypertension No family hx of Cerebrovascular Disease No family hx of PE: VS: BP 123/79 Pulse (!) 45 Temp 97 ??F (36.1 ??C) (Temporal) Resp 22 Ht 1.549 m (5' 1) LMP 06/29/2012 SpO2 100% No Gen: A&O, NAD Abd: soft, mild tenderness RLQ, no rebound or guarding Labs: Hgb 13.7 WBC 11.3 BMP NA 129 A/P: 37 year old nulligravida s/p TLH in December with acute RLQ pain, enlarged right ovary which appears possibly edematous and concern for torsion. 1. Discussed situation with patient and her parents at length. Discussed if torsion present, treatment would be surgical. Discussed in this situation not clear if torsion present given no definite mass/cyst in ovary and there is blood flow. Discussed her exam is fairly benign but she was reporting significant pain. At this point, she feels pain is a little better. 2. Discussed options and she would like to repeat U/S now and continue to monitor pain. If U/S shows no flow or ovary larger (increased edema), would then proceed to OR. If pain worsens, again, wouldlikely need to proceed to OR. If pain continues to improve, may be able to continue to expectantly manage. 60 min spent with patient. Brittney Hooker MD 03/30/2023 3:47 PM documented in this encounter ED Notes * Germania Larson RN - 03/30/2023 7:48 PM CDT Bed: ED31 Expected date: 03/30/23 Expected time: 5:57 PM Means of arrival: Comments: ED 1 * Sujit Juarez RN - 03/30/2023 7:35 PM CDT [facility] ED Nurse Handoff Report ED Chief complaint: ovarian torsion . ED Diagnosis: Final diagnoses: RLQ abdominal pain Allergies: Allergies Allergen Reactions Nkda [No Known Drug Allergy] Code Status: Full Code Activity level - Baseline/Home: independent. Activity Level - Current: standby. Lift room needed: No. Bariatric: No Chemical Laboratory Technician Needed: No Isolation: No. Infection: Not Applicable. Respiratory status: Room air Vital Signs (within 30 minutes): Vitals: 03/30/23 1815 03/30/23 1825 03/30/23 1835 03/30/23 1907 BP: 103/69 108/68 104/83 Pulse: Resp: Temp: TempSrc: SpO2: 98% 98% 99% Height: Cardiac Rhythm: , Pain level: Patient confused: No. Patient Falls Risk: nonskid shoes/slippers when out of bed and patient and family education. Elimination Status: Due to void Patient Report - Initial Complaint: Ovarian torsion. Focused Assessment: TRAFFIC COURT MAGISTRATE- C/o RLQ abdominal pain that started upon waking. Pain waxes and wanes. Went to clinic and was dx with ovarian torsion. Seen by TRAFFIC COURT MAGISTRATE in ED. Abnormal Results: Labs Ordered and Resulted from Time of ED Arrival to Time of ED Departure BASIC METABOLIC PANEL - Abnormal Result Value Sodium 129 (*) Potassium 4.7 Chloride 92 (*) Carbon Dioxide (CO2) 25 Anion Gap 12 Urea Nitrogen 6.6 Creatinine 0.53 GFR Estimate >90 Calcium 9.4 Glucose 139 (*) CBC WITH PLATELETS AND DIFFERENTIAL - Abnormal WBC Count 11.3 (*) RBC Count 4.42 Hemoglobin 13.7 Hematocrit 40.9 MCV 93 MCH 31.0 MCHC 33.5 RDW 11.9 Platelet Count 317 % Neutrophils 83 % Lymphocytes 11 % Monocytes 6 % Eosinophils 0 % Basophils 0 % Immature Granulocytes 0 NRBCs per 100 WBC 0 Absolute Neutrophils 9.3 (*) Absolute Lymphocytes 1.3 Absolute Monocytes 0.7 Absolute Eosinophils 0.0 Absolute Basophils 0.0 Absolute Immature Granulocytes 0.0 Absolute NRBCs 0.0 US Pelvis Cmpl wo Transvaginal w Abd/Pel Duplex Lmt Final Result IMPRESSION: 1. No significant change. Right ovary remains modestly enlarged similar to previous exam but duplexDoppler flow is present and within normal limits. Can't exclude possible torsion/detorsion. Treatments provided: 650 mg tylenol, 5 mg oxycodone x 2 Family Comments: Parents at bedside OBS brochure/video discussed/provided to patient: Yes ED Medications: Medications melatonin tablet 1 mg (has no administration in time range) sodium chloride 0.9% infusion (has no administration in time range) acetaminophen (TYLENOL) tablet 975 mg (has no administration in time range) ibuprofen (ADVIL/MOTRIN) tablet 600 mg (has no administration in time range) oxyCODONE (ROXICODONE) tablet 5 mg (has no administration in time range) docusate sodium (COLACE) capsule 100 mg (has no administration in time range) ondansetron (ZOFRAN ODT) ODT tab 4 mg (has no administration in time range) Or ondansetron (ZOFRAN) injection 4 mg (has no administration in time range) oxyCODONE (ROXICODONE) tablet 5 mg (5 mg Oral $Given 03/30/23 1436) acetaminophen (TYLENOL) tablet 650 mg (650 mg Oral $Given 03/30/23 1436) oxyCODONE (ROXICODONE) tablet 5 mg (5 mg Oral $Given 03/30/23 1917) Drips infusing: No For the majority of the shift this patient was Green. Interventions performed were N/A. Sepsis treatment initiated: No Cares/treatment/interventions/medications to be completed following ED care: See orders ED Nurse Name: Louann Bonilla RN 7:35 PM RECEIVING UNIT ED HANDOFF REVIEW Above ED Nurse Handoff Report was reviewed: Yes Reviewed by: Sujit Juarez RN on March 30, 2023 at 8:16 PM * Donal Singleton RN - 03/30/2023 2:50 PM CDT 03/30/23 1450 Vital Signs Oximeter Heart Rate 46 bpm SpO2 100 % O2 Device None (Room air) Fruit Sorter checks on the pt. Pt denies any lighthead or dizziness. Pt reports that she has been told her heart rate is lower in the 50's. Dr. Schneider made aware. EKG ordered. * Patti Watt RN - 03/30/2023 2:22 PM CDT Bed: ED01 Expected date: Expected time: Means of arrival: Comments: triage * Nenita Campbell RN - 03/30/2023 2:16 PM CDT Pt presents from [facility] with R ovarian torsion. Pt denies other sx besides abdpain. Of note hysterectomy in December.A & Ox4 Triage Assessment Row Name 03/30/23 1416 Triage Assessment (Adult) Airway WDL WDL Respiratory WDL Respiratory WDL WDL Skin Circulation/Temperature WDL Skin Circulation/Temperature WDL WDL Cardiac WDL Cardiac WDL WDL Peripheral/Neurovascular WDL Peripheral Neurovascular WDL WDL Cognitive/Neuro/Behavioral WDL Cognitive/Neuro/Behavioral WDL WDL * Osvaldo Schneider MD - 03/30/2023 2:13 PM CDT History Chief Complaint: ovarian torsion The history is provided by the patient. Brittney Valentin is a 37 year old female presents emergency department right lower quadrant abdominal pain that started shortly after she woke up this morning has been persistent waxing and waning some all day. No fevers no vomiting. Patient was seen in urgent care clinic and had a ultrasound of her pelvis done which showed concern for intermittent ovarian torsion on the right. She was referred here for evaluation. 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 Patient reports she has prior history of hysterectomy done earlier this December by Dr. Vincent at [facility]. Patient reports she ate breakfast before 8 AM this morning, and that the last solid food she has eaten today. Took ibuprofen prior to arrival. Independent Historian: None - Patient Only Review of External Notes: Reviewed clinic notes from 03-30-2023 including ultrasound results. Medications: The patient is currently on no regular medications. Past Medical History: Underactive thyroid Physical Exam Patient Vitals for the past 24 hrs: BP Temp Temp src Pulse Resp SpO2 Height 03/30/23 1630 111/81 -- -- 64 18 98 % -- 03/30/23 1600 115/89 -- -- 50 14 100 % -- 03/30/23 1550 119/73 -- -- 51 10 100 % -- 03/30/23 1540 -- -- -- -- -- 100 % -- 03/30/23 1530 123/79 -- -- (!) 45 -- 100 % -- 03/30/23 1520 -- -- -- -- -- 100 % -- 03/30/23 1515 120/74 -- -- (!) 42 22 100 % -- 03/30/23 1500 117/78 -- -- (!) 43 -- 100 % -- 03/30/23 1452 -- -- -- -- -- 100 % -- 03/30/23 1450 -- -- -- -- -- 100 % -- 03/30/23 1445 136/87 -- -- (!) 46 -- 100 % -- 03/30/23 1418 133/78 97 ??F (36.1 ??C) Temporal 51 18 100 % 1.549 m (5' 1) Physical Exam Gen: well appearing, in no acute distress Oral : Mucous membranes moist, Nose: No rhinorhea Ears: External near normal, without drainage Eyes: periorbital tissues and sclera normal Neck: supple, no abnormal swelling Lungs: Clear bilaterally, no tachypnea or distress, speaks full sentences CV: Regular rate, regular rhythm Abd: soft, nontender, nondistended, no rebound/guarding Ext: no lower extremity edema Skin: warm, dry, well perfused, no rashes/bruising/lesions on exposed skin Neuro: alert, no gross motor or sensory deficits, Psych: pleasant mood, normal affect Emergency Department Course ECG Normal sinus rate 45 OR interval 138 QRS duration 74, QTc 413. No ST segment changes or T inversions concerning for acute ischemia. Imaging: US Pelvis Cmpl wo Transvaginal w Abd/Pel Duplex Lmt Final Result IMPRESSION: 1. No significant change. Right ovary remains modestly enlarged similar to previous exam but duplexDoppler flow is present and within normal limits. Can't exclude possible torsion/detorsion. Laboratory: Labs Ordered and Resulted from Time of ED Arrival to Time of ED Departure BASIC METABOLIC PANEL - Abnormal Result Value Sodium 129 (*) Potassium 4.7 Chloride 92 (*) Carbon Dioxide (CO2) 25 Anion Gap 12 Urea Nitrogen 6.6 Creatinine 0.53 GFR Estimate >90 Calcium 9.4 Glucose 139 (*) CBC WITH PLATELETS AND DIFFERENTIAL - Abnormal WBC Count 11.3 (*) RBC Count 4.42 Hemoglobin 13.7 Hematocrit 40.9 MCV 93 MCH 31.0 MCHC 33.5 RDW 11.9 Platelet Count 317 % Neutrophils 83 % Lymphocytes 11 % Monocytes 6 % Eosinophils 0 % Basophils 0 % Immature Granulocytes 0 NRBCs per 100 WBC 0 Absolute Neutrophils 9.3 (*) Absolute Lymphocytes 1.3 Absolute Monocytes 0.7 Absolute Eosinophils 0.0 Absolute Basophils 0.0 Absolute Immature Granulocytes 0.0 Absolute NRBCs 0.0 Emergency Department Course & Assessments: Interventions: Medications oxyCODONE (ROXICODONE) tablet 5 mg (5 mg Oral $Given 03/30/23 1436) acetaminophen (TYLENOL) tablet 650 mg (650 mg Oral $Given 03/30/23 143) Assessments: TRAFFIC COURT MAGISTRATE consult Independent Interpretation (X-rays, CTs, rhythm strip): None Consultations/Discussion of Management or Tests: [address] Jeffers, OBGYMarcie, regarding the patient's history and presentation in the emergency department today. Social Determinants of Health affecting care: None Disposition: The patient was admitted to the hospital under the care of Dr. Jeffers. Impression & Plan Medical Decision Making: Patient presents with right lower quadrant abdominal pain had an ultrasound done as an outpatient which was a bit concerning for ovarian pathology. There was blood flow present to the right ovary butit looked a little bit edematous, there was some concern for intermittent torsion. Patient still complaining of right lower quadrant pain her exam is very benign and not seeing evidence of peritonitis. Patient was seen by TRAFFIC COURT MAGISTRATE in the ED they had a long prolonged discussion and decided to repeat an ultrasound which I ordered. Regroup with TRAFFIC [address] MAGISTRATE after the second ultrasound which is basically unchanged and patient is still having pain although it does not look severe. TRAFFIC COURT MAGISTRATE recommended obvious overnight for serial exams and reassessment in the hospital overnight. I discussed with patient andher amenable to that plan. Diagnosis: ICD-10-CM 1. RLQ abdominal pain R10.31 Scribe Disclosure: IEmma, am serving as a scribe at 7:06 PM on 03/30/2023 to document services personally performed by Osvaldo Schneider MD based on my observations and the provider's statements to me. Osvaldo Schneider MD 03/30/2023 Osvaldo Schneider MD Tschetter, Paul Anthony, MD 03/30/231910 documented in this encounter Miscellaneous Notes * Plan of Care - Skye Franco RN - 03/31/2023 9:57 AM CDT Patient's After Visit Summary was reviewed with patient Patient verbalized understanding of After Visit Summary, recommended follow up and was given an opportunity to ask questions. Yes Discharge medications sent home with patient/family: Not applicable Discharged with mother and father OBSERVATION patient END time: 10:30 * Plan of Care - Skye Franco RN - 03/31/2023 8:00 AM CDT PRIMARY DIAGNOSIS: R ovarian torsion OUTPATIENT/OBSERVATION GOALS TO BE MET BEFORE DISCHARGE: BP 105/67 (BP Location: Right arm) Pulse 54 Temp 98 ??F (36.7 ??C) (Oral) Resp 16 Ht 1.549 m (5' 1) LMP 06/29/2012 SpO2 100% No 1. Pain Status: Improved-controlled with oral pain medications. 2. 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 They will followup with her outpatient. NS stopped due to patient discharging. Please review provider order for any additional goals. Nurse to notify provider when observation goals have been met and patient is ready for discharge. * Plan of Care - Sujit Juarez RN - 03/31/2023 4:00 AM CDT PRIMARY DIAGNOSIS: R ovarian torsion OUTPATIENT/OBSERVATION GOALS TO BE MET BEFORE DISCHARGE: BP 91/53 (BP Location: Right arm) Pulse (!) 44 Temp 98.2 ??F (36.8 ??C) (Oral) Resp 12 Ht 1.549 m (5' 1) LMP 06/29/2012 SpO2 97% No 1. Pain Status: Improved-controlled with oral pain medications. 2. Return to near baseline physical activity: Yes Dry House Worker Nurse Safe discharge environment identified: Yes Barriers to discharge: Yes Entered by: Sujit Juarez RN Pt A&Ox4. VSS on RA. NPO at midnight. Pt reports pain in RLQ, given scheduled tylenol. NS infusing at 100ml/hr. Plan- possible exploratory lap 03/31 if pain persists/worsens. Please review provider order for any additional goals. Nurse to notify provider when observation goals have been met and patient is ready for discharge. * Plan of Care - Sujit Juarez RN - 03/31/2023 12:00 AM CDT PRIMARY DIAGNOSIS: R ovarian torsion OUTPATIENT/OBSERVATION GOALS TO BE MET BEFORE DISCHARGE: BP 91/53 (BP Location: Right arm) Pulse (!) 44 Temp 98.2 ??F (36.8 ??C) (Oral) Resp 12 Ht 1.549 m (5' 1) LMP 06/29/2012 SpO2 97% No 1. Pain Status: Improved-controlled with oral pain medications. 2. Return to near baseline physical activity: Yes Dry House Worker Nurse Safe discharge environment identified: Yes Barriers to discharge: Yes Entered by: Sujit Juarez RN Pt A&Ox4. VSS on RA. NPO at midnight. Pt reports pain in RLQ, given scheduled tylenol. NS infusing at 100ml/hr. Will continue with POC. Please review provider order for any additional goals. Nurse to notify provider when observation goals have been met and patient is ready for discharge. * Pharmacy-Admission Medication History - Reginald Jane RPH - 03/30/2023 9:01 PM CDT Pharmacist Admission Medication History Admission medication history is complete. The information provided in this note is only as accurateas the sources available at the time of the update. Medication reconciliation/reorder completed by provider prior to medication history? No Information Source(s): Patient via in-person Pertinent Information: none Changes made to HEAD NURSE medication list: Added: all listed Deleted: minocycline, otc eye drops Changed: None Medication Affordability: Not including over the counter (OTC) medications, was there a time in the past 3 months when you did not take your medications as prescribed because of cost?: No Allergies reviewed with patient and updates made in EHR: yes Medication History Completed By: Reginald Jane RPH 03/30/2023 9:01 PM Prior to Admission medications Medication Sig Last Dose Taking? Auth Provider Residential End Date busPIRone (BUSPAR) 10 MG tablet Take 10 mg by mouth every morning 03/30/2023 at am Yes Unknown, Entered By History Yes doxylamine (UNISOM) 25 MG TABS tablet Take 25 mg by mouth At Bedtime 03/29/2023 Yes Unknown, EnteredBy History Vit-Fe Fumarate-FA ( MULTIVITAMIN PLUS IRON) 27-1 MG TABS Take 1 tablet by mouth daily 03/30/2023 Yes Unknown, Entered By History Pyridoxine HCl (VITAMIN B-6 PO) Take 1 tablet by mouth daily 03/30/2023 Yes Unknown, Entered By History * Plan of Care - Sujit Juarez RN - 03/30/2023 8:33 PM CDT ROOM # 204-1 Living Situation (if not independent, order SW consult): home alone Facility name: cash person: Jessi (mother) [phone] Activity level at baseline: IND Activity level on admit: IND Who will be transporting you at discharge: TBD Patient registered to observation; given Patient Bill of Rights; given the opportunity to ask questions about observation status and their plan of care. Patient has been oriented to the observation room, bathroom and call light is in place. Discussed discharge goals and expectations with patient/family. documented in this encounter Plan of Treatment Not on file documented as of this encounter Procedures Procedure Name Priority Date/Time Associated Diagnosis Comments CBC WITH PLATELETS Routine 03/31/2023 5: 40 AM CDT US PELVIS CMPL WO TRANSVAGINAL W ABD/PEL DUPLEX LIMITED STAT 03/30/2023 6:22 PM CDT EKG 12-LEAD, TRACING ONLY STAT 03/30/2023 2:58 PM CDT EXTRA TUBE STAT 03/30/2023 2:20 PM CDT EXTRA BLOOD BANK PURPLE TOP TUBE STAT 03/30/2023 2:20 PM CDT EXTRA BLOOD BANK PURPLE TOP TUBE STAT 03/30/2023 2:20 PM CDT EXTRA RED TOP TUBE STAT 03/30/2023 2: 20 PM CDT EXTRA BLUE TOP TUBE STAT 03/30/2023 2 :20 PM CDT CBC WITH PLATELETS AND DIFFERENTIAL STAT 03/30/2023 2:20 PM CDT CBC WITH PLATELETS & DIFFERENTIAL STAT 03/30/2023 2:20 PM CDT BASIC METABOLIC PANEL STAT 03/30/2023 2:20 PM CDT documented in this encounter Results * CBC with platelets (03/31/2023 5:40 AM CDT) WBC Count 5.2 4.0 - 11.0 10e3/uL 03/31/2023 6:04 AM CDT [facility] RBC Count 4.01 3.80 - 5.20 10e6/uL 03/31/2023 6:04 AM CDT [facility] Hemoglobin 12.4 11.7 - 15.7 g/dL 03/31/2023 6:04 AM CDT [facility] Hematocrit 37.3 35.0 - 47.0 % 03/31/2023 6:04 AM CDT [facility] MCV 93 78 - 100 fL 03/31/2023 6:04 AM CDT [facility] MCH 30.9 26.5 - 33.0 pg 03/31/2023 6:04 AM CDT [facility] MCHC 33.2 31.5 - 36.5 g/dL 03/31/2023 6:04 AM CDT [facility] RDW 11.9 10.0 - 15.0 % 03/31/2023 6:04 AM CDT [facility] Platelet Count 258 150 - 450 10e3/uL 03/31/2023 6:04 AM CDT [facility] Blood STRUCTURE OF LEFT UPPER LIMB / Unknown Venipuncture / Unknown 03/31/2023 5:40 AM CDT 03/31/2023 5:54 AM CDT Maria Eugenia Jeffers MD LAB - BLOOD TYRESE DELUNA [facility] Organization Address City/State/ZIP Co de Phone Number LABORATORY [facility] [address] Lab (1st floor, no room number) [place] [address], [facility] [phone] * US Pelvis Cmpl wo Transvaginal w Abd/Pel Duplex Lmt (03/30/2023 6:22 PM CDT) Anatomical Region Laterality Modality Abdomen/Pelvis Ultrasound 03/30/2023 6:22 PM CDT Impressions 03/30/2023 6:36 PM CDT IMPRESSION: ?? 1. ??No significant change. Right ovary remains modestly enlarged similar to previous exam but duplex Doppler flow is present and within normal limits. Can't exclude possible torsion/detorsion. Narrative 03/30/2023 6:36 PM CDT EXAM: US PELVIS CMPL WO TRANSVAGINAL W ABD/PEL DUPLEX LIMITED LOCATION: [facility] DATE: 03/30/2023 INDICATION: eval for torsion, compare to earlier outside exam perGYN COMPARISON: Earlier today at 1230 hours. TECHNIQUE: Transabdominal scans were performed. Color flow with spectral Doppler and waveform analysis performed. FINDINGS: UTERUS: Prior hysterectomy. RIGHT OVARY: 5.8 x 4.6 x 3.4 cm. Normal with arterial and venous duplex flow identified. LEFT OVARY: 3.5 x 2.8 x 2.6 cm. Normal with arterial and venous duplex flow identified. Mild amount of free fluid. Procedure Note Kleber Huerta MD - 03/30/2023 EXAM: US PELVIS CMPL WO TRANSVAGINAL W ABD/PEL DUPLEX LIMITED LOCATION: [facility] DATE: 03/30/2023 INDICATION: eval for torsion, compare to earlier outside exam perGYN COMPARISON: Earlier today at 1230 hours. TECHNIQUE: Transabdominal scans were performed. Color flow with spectralDoppler and waveform analysis performed. FINDINGS: UTERUS: Prior hysterectomy. RIGHT OVARY: 5.8 x 4.6 x 3.4 cm. Normal with arterial and venous duplexflow identified. LEFT OVARY: 3.5 x 2.8 x 2.6 cm. Normal with arterial and venous duplexflow identified. Mild amount of free fluid. IMPRESSION: 1. No significant change. Right ovary remains modestly enlarged similarto previous exam but duplex Doppler flow is present and within normallimits. Can't exclude possible torsion/detorsion. Osvaldo Schneider MD IMG US ORDERAB LES * EKG 12 lead (03/30/2023 2:58 PM CDT) Systolic Blood Pressure mmHg RADIOLOGY RESULTS Diastolic Blood Pressure mmHg RADIOLOGY RESULTS Ventricular Rate 45 BPM RAD IOLOGY RESULTS Atrial Rate 45 BPM RADIOLOG Y RESULTS OR Interval 138 ms RADIOLOG Y RESULTS QRS Duration 74 ms RADIOLO GY RESULTS QT 478 ms RADIOLOGY RESULTS QTc 413 ms RADIOLOGY RESULTS P Henning 52 degrees RADIOLOGY RESULTS R AXIS 22 degrees RADIOLOGY RESULTS T Hen[place] 40 degrees RADIOLOGY RESULTS Interpretation ECG Sinus bradycardia Otherwise normal ECG No previous ECGs available Confirmed by - EMERGENCY ROOM, PHYSICIAN ([id number]), development editor JANELL RENNER ([id number]) on 03/31/2023 7:08:50 AM RADIOLOGY RESULTS 03/30/2023 2:58 PM CDT 03/31/2023 7:08 AM CDT Osvaldo Schneider MD ECG ORDERABLES RADIOLOGY RESULTS * (ABNORMAL) CBC with platelets and differential (03/30/2023 2:20 PM CDT) WBC Count 11.3(H) 4.0 - 11.0 10e3/uL 03/30/2023 2:32 PM CDT [facility] RBC Count 4.42 3.80 - 5.20 10e6/uL 03/30/2023 2:32 PM CDT [facility] Hemoglobin 13.7 11.7 - 15.7 g/dL 03/30/2023 2:32 PM CDT [facility] Hematocrit 40.9 35.0 - 47.0 % 03/30/2023 2:32 PM CDT [facility] MCV 93 78 - 100 fL 03/30/2023 2:32 PM CDT [facility] MCH 31.0 26.5 - 33.0 pg 03/30/2023 2:32 PM CDT [facility] MCHC 33.5 31.5 - 36.5 g/dL 03/30/2023 2:32 PM CDT [facility] RDW 11.9 10.0 - 15.0 % 03/30/2023 2:32 PM CDT [facility] Platelet Count 317 150 - 450 10e3/uL 03/30/2023 2:32 PM CDT [facility] % Neutrophils 83 % 03/30/2023 2:32 PM CDT [facility] % Lymphocytes 11 % 03/30/2023 2:32 PM CDT [facility] % Monocytes 6 % 03/30/2023 2:32 PM CDT [facility] % Eosinophils 0 % 03/30/2023 2:32 PM CDT [facility] % Basophils 0 % 03/30/2023 2:32 PM CDT [facility] % Immature Granulocytes 0 % 03/30/2023 2:32 PM CDT [facility] NRBCs per 100 WBC 0 <1 /100 023 2:32 PM CDT [facility] Absolute Neutrophils 9.3(H) 1.6 - 8.3 10e3/uL 03/30/2023 2:32 PM CDT [facility] Absolute Lymphocytes 1.3 0.8 - 5.3 10e3/uL 03/30/2023 2:32 PM CDT [facility] Absolute Monocytes 0.7 0.0 - 1.3 10e3/uL 03/30/2023 2:32 PM CDT [facility] Absolute Eosinophils 0.0 0.0 - 0.7 10e3/uL 03/30/2023 2:32 PM CDT [facility] Absolute Basophils 0.0 0.0 - 0.2 10e3/uL 03/30/2023 2:32 PM CDT [facility] Absolute Immature Granulocytes 0.0 <=0.4 10e3/uL 03/30/2023 2:32 PM CDT [facility] Absolute NRBCs 0.0 10e3/uL 03/30/2023 2:32 PM CDT [facility] Blood STRUCTURE OF LEFT UPPER LIMB / Unknown Venipuncture / Unknown 03/30/2023 2:20 PM CDT 03/30/2023 2:26 PM CDT Osvaldo Schneider MD LAB - BLOOD OR DERABLES LABORATORY [facility] [address] [facility] Lab (1st floor, no room number) [place] [address], [facility] [phone] * Extra Blood Bank Purple Top Tube (03/30/2023 2:20 PM CDT) [facility] Hold Specimen [facility] 03/30/2023 3:32 PM CDT [facility] Blood STRUCTURE OF LEFT UPPER LIMB / Unknown Venipuncture / Unknown 03/30/2023 2:20 PM CDT 03/30/2023 2:26 PM CDT Osvaldo Schneider MD LAB - BLOOD OR DERABLES Performing Organization Address [facility]/ZIP Co de Phone Number LABORATORY [facility] [address] Lab (1st floor, no room number) [place] [address], [facility] [phone] * Extra Blood Bank Purple Top Tube (03/30/2023 2:20 PM CDT) Hold Specimen [facility] 03/30/2023 3:32 PM CDT [facility] Blood STRUCTURE OF LEFT UPPER LIMB / Unknown Venipuncture / Unknown 03/30/2023 2:20 PM CDT 03/30/2023 2:26 PM CDT Osvaldo Schneider MD LAB - BLOOD OR DERABLES Performing Organization Address [facility]/ZIP Co de Phone Number [facility] [address] Lab (1st floor, no room number) [place] [address], [facility] [phone] * Extra Red Top Tube (03/30/2023 2:20 PM CDT) Hold Specimen [facility] 03/30/2023 3:32 PM CDT [facility] Blood STRUCTURE OF LEFT UPPER LIMB / Unknown Venipuncture / Unknown 03/30/2023 2:20 PM CDT 03/30/2023 2:26 PM CDT Osvaldo Schneider MD LAB - BLOOD OR DERABLES Performing Organization Address City/[facility]/ZIP Co de Phone Number [facility] [address] Lab (1st floor, no room number) [place] [address], [facility] [phone] * Extra Blue Top Tube (03/30/2023 2:20 PM CDT) Hold Specimen [facility] 03/30/2023 3:32 PM CDT [facility] Blood STRUCTURE OF LEFT UPPER LIMB / Unknown Venipuncture / Unknown 03/30/2023 2:20 PM CDT 03/30/2023 2:26 PM CDT Osvaldo Schneider MD LAB - BLOOD OR DERABLES [facility] [address] [facility] Lab (1st floor, no room number) [place] [address], [facility] [phone] * (ABNORMAL) Basic metabolic panel (BMP) (03/30/2023 2:20 PM CDT) [facility] Sodium 129(L) 135 - 145 mmol/L 03/30/2023 2:52 PM CDT LABORATORY Comment:Reference intervals for this test were updated on 03/30/2023 to more accurately reflect our healthy population. There may be differences in the flagging of prior results with similar values performed with this method. Interpretation of those prior results can be made in the context of the updated reference intervals. Potassium 4.7 3.4 - 5.3 mmol/L 03/30/2023 2:52 PM CDT LABORATORY Chloride 92(L) 98 - 107 mmol/L 03/30/2023 2:52 PM CDT LABORATORY Carbon Dioxide (CO2) 25 22 - 29 mmol/L 03/30/2023 2:52 PM CDT LABORATORY Anion Gap 12 7 - 15 mmol/L 03/30/2023 2:52 PM CDT LABORATORY Urea Nitrogen 6.6 6.0 - 20.0 mg/dL 03/30/2023 2:52 PM CDT LABORATORY Creatinine 0.53 0.51 - 0.95 mg/dL 03/30/2023 2:52 PM CDT LABORATORY GFR Estimate >90 >60 mL/min/1. 73m2 03/30/2023 2:52 PM CDT LABORATORY Calcium 9.4 8.6 - 10.0 mg/dL 03/30/2023 2:52 PM CDT LABORATORY Glucose 139(H) 70 - 99 mg/dL 03/30/2023 2:52 PM CDT LABORATORY Blood STRUCTURE OF LEFT UPPER LIMB / Unknown Venipuncture / Unknown 03/30/2023 2:20 PM CDT 03/30/2023 2:26 PM CDT Osvaldo Schneider MD LAB - BLOOD OR DERABLES [facility] [address] Lab (1st floor, no room number) [place] [address], [facility] [phone] documented in this encounter Visit Diagnoses Diagnosis RLQ abdominal pain- Primary Abdominal pain, right lower quadrant RLQ abdominal pain Abdominal pain, right lower quadrant documented in this encounter Admitting Diagnoses Diagnosis RLQ abdominal pain Abdominal pain, right lower quadrant documented in this encounter Administered Medications Inactive Administered Medications - up to 3 most recent administrations Medication Order MAR Action Action Date Dose Rate Site acetaminophen (TYLENOL) tablet 650 mg 650 mg, Oral, ONCE, On Wed03/30/23 at 1435, For 1 dose, Maximum acetaminophen dose from all sources = 75 mg/kg/day not to exceed 4 grams/day. $Given 03/30/2023 2:36 PM CDT 650 mg acetaminophen (TYLENOL) tablet 975 mg 975 mg, Oral, EVERY 8 HOURS SCHEDULED, First dose on Wed03/30/23 at 2200, Maximum acetaminophen dose from all sources = 75 mg/kg/day not to exceed 4 grams/day. $Given 03/30/2023 9:47 PM CDT 975 mg docusate sodium (COLACE) capsule 100 mg 100 mg, Oral, 2 TIMES DAILY, First dose on Wed03/30/23 at 2000, To prevent constipation. Hold for loose stools Hold for loose stools. $Given 03/30/2023 7:56 PM CDT 100 mg naloxone (NARCAN) injection 0.2 mg 0.2 mg, Intravenous, EVERY 2 MIN PRN, opioid reversal, Starting on Wed03/30/23 at 2032, Administer intravenous route when available and notify provider when administered. For unintended sedation or respiratory depression if all of the below criteria are met: ~ respiratory rate LESS than or EQUAL to 8. ~SaO2 less than 92% and or/end-tidal CO2 is greater than 50. ~ the patient is receiving an opioid, has unintended sedations assessed as RASS (-3), and is currently not on mechanical ventilation. RASS scale moderate (-3) is movement or eye opening to voice but no eye contact. Patient Monitoring Once the patient has demonstrated a response to the naloxone, continue to monitor respiratory rate, depth, oxygen saturation and end-tidal CO2 (if available) every 15 minutes x 2, then every 30 minutes x 2, then every 1 hour x 1 after each naloxone dose. Consider transfer to ICU if patient respiratory parameters have not improved after 4 naloxone doses. naloxone (NARCAN) injection 0.2 mg 0.2 mg, Intramuscular, EVERY 2 MIN PRN, opioid reversal, Starting on Wed03/30/23 at 2032, Administer intramuscular if an intravenous route is not available and notify provider when administered. For unintended sedation or respiratory depression if all of the below criteria are met: ~ respiratory rate LESS than or EQUAL to 8. ~SaO2 less than 92% and or/end-tidal CO2 is greater than 50. ~ the patient is receiving an opioid, has unintended sedations assessed as RASS (-3), and is currently not on mechanical ventilation. RASS scale moderate (-3) is movement or eye opening to voice but no eye contact. Patient Monitoring Once the patient has demonstrated a response to the naloxone, continue to monitor respiratory rate, depth, oxygen saturation and end-tidal CO2 (if available) every 15 minutes x 2, then every 30 minutes x 2, then every 1 hour x 1 after each naloxone dose. Consider transfer to ICU if patient respiratory parameters have not improved after 4 naloxone doses. naloxone (NARCAN) injection 0.4 mg 0.4 mg, Intravenous, EVERY 2 MIN PRN, opioid reversal, Starting on Wed03/30/23 at 2032, Administer intravenous route when available and notify provider when administered. For unintended sedation or respiratory depression if all of the below criteria are met: ~ respiratory rate LESS than or EQUAL to 8. ~ SaO2 less than 92% and or/end-tidal CO2 is greater than 50. ~ the patient is receiving an opioid, has unintended sedation assessed as RASS (-4) or (-5) and patient is currently not on mechanical ventilation. RASS scale (-4) is deep sedation with no response to voice but movement or eye opening to physical stimulation. RASS scale (-5) is unarousable. Patient Monitoring Once the patient has demonstrated a response to the naloxone, continue to monitor respiratory rate, depth, oxygen saturation and end-tidal CO2 (if available) every 15 minutes x 2, then every 30 minutes x 2, then every 1 hour x 1 after each naloxone dose. Consider transfer to ICU if patient respiratory parameters have not improved after 4 naloxone doses. naloxone (NARCAN) injection 0.4 mg 0.4 mg, Intramuscular, EVERY 2 MIN PRN, opioid reversal, Starting on Wed03/30/23 at 2032, Administer intramuscular if an intravenous route is not available and notify provider when administered. For unintended sedation or respiratory depression if all of the below criteria are met: ~ respiratory rate LESS than or EQUAL to 8. ~ SaO2 less than 92% and or/end-tidal CO2 is greater than 50. ~ the patient is receiving an opioid, has unintended sedation assessed as RASS (-4) or (-5) and patient is currently not on mechanical ventilation. RASS scale (-4) is deep sedation with no response to voice but movement or eye opening to physical stimulation. RASS scale (-5) is unarousable. Patient Monitoring Once the patient has demonstrated a response to the naloxone, continue to monitor respiratory rate, depth, oxygen saturation and end-tidal CO2 (if available) every 15 minutes x 2, then every 30 minutes x 2, then every 1 hour x 1 after each naloxone dose. Consider transfer to ICU if patient respiratory parameters have not improved after 4 naloxone doses. ondansetron (ZOFRAN ODT) ODT tab 4 mg 4 mg, Oral, EVERY 6 HOURS PRN, nausea, vomiting, Starting on Wed03/30/23 at 1918, This is Step 1 of nausea and vomiting management. If nausea not resolved in 15 minutes, go to Step 2 prochlorperazine (COMPAZINE). With dry hands, peel back foil backing and gently remove tablet. Do not push oral disintegrating tablet through foil backing. Administer immediately on tongue and oral disintegrating tablet dissolves in seconds, then swallow with saliva. Liquid not required. ondansetron (ZOFRAN) injection 4 mg 4 mg, Intravenous, EVERY 6 HOURS PRN, nausea, vomiting, Administer over 2-5 Minutes, Starting on Wed03/30/23 at 1918, Give IF patient unable to tolerate oral medication. This is Step 1 of nausea and vomiting management. If nausea not resolved in 15 minutes, go to Step 2 prochlorperazine (COMPAZINE). Irritant. oxyCODONE (ROXICODONE) tablet 5 mg 5 mg, Oral, ONCE, On Wed03/30/23 at 1435, For 1 dose $Given 03/30/2023 2:36 PM CDT 5 mg oxyCODONE (ROXICODONE) tablet 5 mg 5 mg, Oral, ONCE, On Wed03/30/23 at 1915, For 1 dose $Given 03/30/2023 7:17 PM CDT 5 mg sodium chloride 0.9% infusion at 100 mL/hr, Intravenous, CONTINUOUS, Starting on Wed03/30/23 at 1920, Until Wed03/31/23 at 1238 $New Bag 03/31/2023 5:59 AM CDT 100 mL/hr $New Bag 03/30/2023 7:56 PM CDT 100 mL/hr documented in this encounter Active and Recently Administered Medications Times are shown in CDT. Scheduled Medication Order 03/29/2023 03/30/2023 03/31/2023 acetaminophen (TYLENOL) tablet 650 mg (COMPLETED) 650 mg, Oral, ONCE, On Wed03/30/23 at 1435, For 1 dose, Maximum acetaminophen dose from all sources = 75 mg/kg/day not to exceed 4 grams/day. 1436 ($Given - Provider: Donal Singleton RN) acetaminophen (TYLENOL) tablet 975 mg 975 mg, Oral, EVERY 8 HOURS SCHEDULED, First dose on Wed03/30/23 at 2200, Maximum acetaminophen dose from all sources = 75 mg/kg/day not to exceed 4 grams/day. 2146 ($Given - Provider: Sujit Juarez RN) 06 (Not Given - Provider: Sujit Juarez RN - Reason: Patient/family refused) docusate sodium (COLACE) capsule 100 mg 100 mg, Oral, 2 TIMES DAILY, First dose on Wed03/30/23 at 2000, To prevent constipation. Hold for loose stools Hold for loose stools. 1955 ($Given - Provider: Jodie De León RN) 0830 (Not Given - Provider: Skye Franco RN - Reason: Patient/family refused) oxyCODONE (ROXICODONE) tablet 5 mg (COMPLETED) 5 mg, Oral, ONCE, On Wed03/30/23 at 1435, For 1 dose 1436 ($Given - Provider: Donal Singleton, RN) oxyCODONE (ROXICODONE) tablet 5 mg (COMPLETED) 5 mg, Oral, ONCE, On Wed03/30/23 at 191, For 1 dose 1916 ($Given - Provider: Louann Bonilla, FREDERIC) Continuous Medication Order 03/29/2023 03/30/2023 03/31/2023 sodium chloride 0.9% infusion at 100 mL/hr, Intravenous, CONTINUOUS, Starting on Wed03/30/23 at 1920, Until Wed03/31/23 at 1238 1956 ($New Bag - Provider: Jodie De León, RN) 0559 ($New Bag - Provider: Sujit Juarez, FREDERIC) PRN Medication Order 03/29/2023 03/30/2023 03/31/2023 ibuprofen (ADVIL/MOTRIN) tablet 600 mg 600 mg, Oral, EVERY 6 HOURS PRN, inflammatory pain, Starting on Wed03/30/23 at 1918, Give with food. melatonin tablet 1 mg 1 mg, Oral, AT BEDTIME PRN, sleep, Starting on Wed03/30/23 at 1918, Do not give unless at least 6 hours of uninterrupted sleep is expected. naloxone (NARCAN) injection 0.2 mg(Linked Group 1) 0.2 mg, Intravenous, EVERY 2 MIN PRN, opioid reversal, Starting on Wed03/30/23 at 2032, Administer intravenous route when available and notify provider when administered. For unintended sedation or respiratory depression if all of the below criteria are met: ~ respiratory rate LESS than or EQUAL to 8. ~SaO2 less than 92% and or/end-tidal CO2 is greater than 50. ~ the patient is receiving an opioid, has unintended sedations assessed as RASS (-3), and is currently not on mechanical ventilation. RASS scale moderate (-3) is movement or eye opening to voice but no eye contact. Patient Monitoring Once the patient has demonstrated a response to the naloxone, continue to monitor respiratory rate, depth, oxygen saturation and end-tidal CO2 (if available) every 15 minutes x 2, then every 30 minutes x 2, then every 1 hour x 1 after each naloxone dose. Consider transfer to ICU if patient respiratory parameters have not improved after 4 naloxone doses. naloxone (NARCAN) injection 0.2 mg(Linked Group 1) 0.2 mg, Intramuscular, EVERY 2 MIN PRN, opioid reversal, Starting on Wed03/30/232032, Administer intramuscular if an intravenous route is not available and notify provider when administered. For unintended sedation or respiratory depression if all of the below criteria are met: ~ respiratory rate LESS than or EQUAL to 8. ~SaO2 less than 92% and or/end-tidal CO2 is greater than 50. ~ the patient is receiving an opioid, has unintended sedations assessed as RASS (-3), and is currently not on mechanical ventilation. RASS scale moderate (-3) is movement or eye opening to voice but no eye contact. Patient Monitoring Once the patient has demonstrated a response to the naloxone, continue to monitor respiratory rate, depth, oxygen saturation and end-tidal CO2 (if available) every 15 minutes x 2, then every 30 minutes x 2, then every 1 hour x 1 after each naloxone dose. Consider transfer to ICU if patient respiratory parameters have not improved after 4 naloxone doses. naloxone (NARCAN) injection 0.4 mg(Linked Group 1) 0.4 mg, Intravenous, EVERY 2 MIN PRN, opioid reversal, Starting on Wed03/30/23 at 2032, Administer intravenous route when available and notify provider when administered. For unintended sedation or respiratory depression if all of the below criteria are met: ~ respiratory rate LESS than or EQUAL to 8. ~ SaO2 less than 92% and or/end-tidal CO2 is greater than 50. ~ the patient is receiving an opioid, has unintended sedation assessed as RASS (-4) or (-5) and patient is currently not on mechanical ventilation. RASS scale (-4) is deep sedation with no response to voice but movement or eye opening to physical stimulation. RASS scale (-5) is unarousable. Patient Monitoring Once the patient has demonstrated a response to the naloxone, continue to monitor respiratory rate, depth, oxygen saturation and end-tidal CO2 (if available) every 15 minutes x 2, then every 30 minutes x 2, then every 1 hour x 1 after each naloxone dose. Consider transfer to ICU if patient respiratory parameters have not improved after 4 naloxone doses. naloxone (NARCAN) injection 0.4 mg(Linked Group 1) 0.4 mg, Intramuscular, EVERY 2 MIN PRN, opioid reversal, Starting on Wed03/30/232032, Administer intramuscular if an intravenous route is not available and notify provider when administered. For unintended sedation or respiratory depression if all of the below criteria are met: ~ respiratory rate LESS than or EQUAL to 8. ~ SaO2 less than 92% and or/end-tidal CO2 is greater than 50. ~ the patient is receiving an opioid, has unintended sedation assessed as RASS (-4) or (-5) and patient is currently not on mechanical ventilation. RASS scale (-4) is deep sedation with no response to voice but movement or eye opening to physical stimulation. RASS scale (-5) is unarousable. Patient Monitoring Once the patient has demonstrated a response to the naloxone, continue to monitor respiratory rate, depth, oxygen saturation and end-tidal CO2 (if available) every 15 minutes x 2, then every 30 minutes x 2, then every 1 hour x 1 after each naloxone dose. Consider transfer to ICU if patient respiratory parameters have not improved after 4 naloxone doses. ondansetron (ZOFRAN ODT) ODT tab 4 mg(Linked Group 2) 4 mg, Oral, EVERY 6 HOURS PRN, nausea, vomiting, Starting on Wed03/30/23 at 1918, This is Step 1 of nausea and vomiting management. If nausea not resolved in 15 minutes, go to Step 2 prochlorperazine (COMPAZINE). With dry hands, peel back foil backing and gently remove tablet. Do not push oral disintegrating tablet through foil backing. Administer immediately on tongue and oral disintegrating tablet dissolves in seconds, then swallow with saliva. Liquid not required. ondansetron (ZOFRAN) injection 4 mg(Linked Group 2) 4 mg, Intravenous, EVERY 6 HOURS PRN, nausea, vomiting, Administer over 2-5 Minutes, Starting on Wed03/30/23 at 1918, Give IF patient unable to tolerate oral medication. This is Step 1 of nausea and vomiting management. If nausea not resolved in 15 minutes, go to Step 2 prochlorperazine (COMPAZINE). Irritant. oxyCODONE (ROXICODONE) tablet 5 mg 5 mg, Oral, EVERY 4 HOURS PRN, severe pain, IF pain not managed with non-pharmacological and non-opioid interventions, Starting on Wed03/30/23 at 1918, May use concomitant with non-opioid analgesics. Linked Groups Order Group 1: naloxone (NARCAN) injection 0.2 mgJump to med 0.2 mg, Intravenous, EVERY 2 MIN PRN, opioid reversal, Starting on Wed03/30/232032, Administer intravenous route when available and notify provider when administered. For unintended sedation or respiratory depression if all of the below criteria are met: ~ respiratory rate LESS than or EQUAL to 8. ~SaO2 less than 92% and or/end-tidal CO2 is greater than 50. ~ the patient is receiving an opioid, has unintended sedations assessed as RASS (-3), and is currently not on mechanical ventilation. RASS scale moderate (-3) is movement or eye opening to voice but no eye contact. Patient Monitoring Once the patient has demonstrated a response to the naloxone, continue to monitor respiratory rate, depth, oxygen saturation and end-tidal CO2 (if available) every 15 minutes x 2, then every 30 minutes x 2, then every 1 hour x 1 after each naloxone dose. Consider transfer to ICU if patient respiratory parameters have not improved after 4 naloxone doses. Or naloxone (NARCAN) injection 0.4 mgJump to med 0.4 mg, Intravenous, EVERY 2 MIN PRN, opioid reversal, Starting on Wed03/30/232032, Administer intravenous route when available and notify provider when administered. For unintended sedation or respiratory depression if all of the below criteria are met: ~ respiratory rate LESS than or EQUAL to 8. ~ SaO2 less than 92% and or/end-tidal CO2 is greater than 50. ~ the patient is receiving an opioid, has unintended sedation assessed as RASS (-4) or (-5) and patient is currently not on mechanical ventilation. RASS scale (-4) is deep sedation with no response to voice but movement or eye opening to physical stimulation. RASS scale (-5) is unarousable. Patient Monitoring Once the patient has demonstrated a response to the naloxone, continue to monitor respiratory rate, depth, oxygen saturation and end-tidal CO2 (if available) every 15 minutes x 2, then every 30 minutes x 2, then every 1 hour x 1 after each naloxone dose. Consider transfer to ICU if patient respiratory parameters have not improved after 4 naloxone doses. Or naloxone (NARCAN) injection 0.2 mgJump to med 0.2 mg, Intramuscular, EVERY 2 MIN PRN, opioid reversal, Starting on Wed03/30/232032, Administer intramuscular if an intravenous route is not available and notify provider when administered. For unintended sedation or respiratory depression if all of the below criteria are met: ~ respiratory rate LESS than or EQUAL to 8. ~SaO2 less than 92% and or/end-tidal CO2 is greater than 50. ~ the patient is receiving an opioid, has unintended sedations assessed as RASS (-3), and is currently not on mechanical ventilation. RASS scale moderate (-3) is movement or eye opening to voice but no eye contact. Patient Monitoring Once the patient has demonstrated a response to the naloxone, continue to monitor respiratory rate, depth, oxygen saturation and end-tidal CO2 (if available) every 15 minutes x 2, then every 30 minutes x 2, then every 1 hour x 1 after each naloxone dose. Consider transfer to ICU if patient respiratory parameters have not improved after 4 naloxone doses. Or naloxone (NARCAN) injection 0.4 mgJump to med 0.4 mg, Intramuscular, EVERY 2 MIN PRN, opioid reversal, Starting on Wed03/30/23 at 2032, Administer intramuscular if an intravenous route is not available and notify provider when administered. For unintended sedation or respiratory depression if all of the below criteria are met: ~ respiratory rate LESS than or EQUAL to 8. ~ SaO2 less than 92% and or/end-tidal CO2 is greater than 50. ~ the patient is receiving an opioid, has unintended sedation assessed as RASS (-4) or (-5) and patient is currently not on mechanical ventilation. RASS scale (-4) is deep sedation with no response to voice but movement or eye opening to physical stimulation. RASS scale (-5) is unarousable. Patient Monitoring Once the patient has demonstrated a response to the naloxone, continue to monitor respiratory rate, depth, oxygen saturation and end-tidal CO2 (if available) every 15 minutes x 2, then every 30 minutes x 2, then every 1 hour x 1 after each naloxone dose. Consider transfer to ICU if patient respiratory parameters have not improved after 4 naloxone doses. Group 2: ondansetron (ZOFRAN ODT) ODT tab 4 mgJump to med 4 mg, Oral, EVERY 6 HOURS PRN, nausea, vomiting, Starting on Wed03/30/23 at 1919, This is Step 1 of nausea and vomiting management. If nausea not resolved in 15 minutes, go to Step 2 prochlorperazine (COMPAZINE). With dry hands, peel back foil backing and gently remove tablet. Do not push oral disintegrating tablet through foil backing. Administer immediately on tongue and oral disintegrating tablet dissolves in seconds, then swallow with saliva. Liquid not required. Or ondansetron (ZOFRAN) injection 4 mgJump to med 4 mg, Intravenous, EVERY 6 HOURS PRN, nausea, vomiting, Administer over 2-5 Minutes, Starting on Wed03/30/23 at 1919, Give IF patient unable to tolerate oral medication. This is Step 1 of nausea and vomiting management. If nausea not resolved in 15 minutes, go to Step 2 prochlorperazine (COMPAZINE). Irritant. documented in this encounter Care Teams Patient Educator Relationship Specialty Start Date End Date [facility] [address] [address] PCP - General 03/30/23 documented as of this encounter
--- OUTSIDE RECORDS SUMMARY | 2023-07-15 14:29 | XMS_ITS | Encounter Summary ---
Author Name Unknown Organization [facility] Address [address] [place] [address] Care Team Providers Care Training Project Manager Name Role Phone Loretta Ryder MD Primary Care Provider [phone] Reason for Visit * Procedure/Equipment (Routine) - Incomplete Specialty Diagnoses / Procedures Referred By Contac t Referred To Contact Diagnoses Right lower quadrant abdominal pain Procedures US Pelvic Complete WO EV [place] [address] [place] [address] Referral ID Status Reason Start Date Expiration Date V isits Requested Visits Authorized [id number] Incomplete 03/30/2023 06/28/2024 1 1 Encounter Details Date Type Department Care Team Description 03/30/2023 2:00 PM CDT Ancillary Procedure [facility] [place] [address] [address] [address] [place] [address] [place] [address] [place] [address] Right lower quadrant abdominal pain Social History [...] Procedure Name Priority Date/Time Associated Diagnosis Comments US PELVIC COMPLETE WO EV STAT 03/30/2023 12:57 PM CDT Right lower quadrant abdominal pain documented in this encounter Results * US Pelvic Complete WO EV (03/30/2023 12:57 PM CDT) Anatomical Region Laterality Modality Pelvis Ultrasound 03/30/2023 12:2 0 PM CDT Impressions 03/30/2023 2:05 PM CDT COMPARISON: ??None. TECHNIQUE: ??Transabdominal imaging was performed. FINDINGS: ?? Uterus: Surgically absent. Right Ovary: Measures 5.8 [...] and inability to tolerate transvaginal scan. Recommend VOLUNTEER SERVICES DIRECTOR consultation for further evaluation. 2. Status post hysterectomy. Critical results called to ROMELIA PEREZ on 03/30/2023 1:11 PM. Narrative Procedure Note Rock Rutledge MD - 03/30/2023 IMPRESSION COMPARISON: None. TECHNIQUE: Transabdominal imaging was performed. FINDINGS: Uterus: Surgically absent. Right Ovary: Measures 5.8 x 4.0 x 3.5 cm, volume of 42.5 cc. Ovarianparenchyma appears heterogeneous and edematous compared to the leftovary. Right Ovary Blood Flow: Present. Left Ovary: Measures 3.9 x 2.3 x 2.4 cm and appears unremarkable Left Ovary Blood Flow: Present. Free Fluid: no significant free fluid. No suspicious adnexal masses. IMPRESSION: 1. Asymmetric enlargement of the right ovary with aheterogeneous/edematous appearance. While low resistance arterial flow wasdemonstrated throughout the right ovary, intermittent torsion should beconsidered given acute onset of pain and inability to toleratetransvaginal scan. Recommend VOLUNTEER SERVICES DIRECTOR consultation for further evaluation. 2. Status post hysterectomy. Critical results called to ROMELIA PEREZ on 03/30/2023 1:11 PM. Romelia Perez MD RAD US documented in this encounter Visit Diagnoses Diagnosis Right lower quadrant abdominal pain Abdominal pain, right lower quadrant documented in this encounter Care Teams Training Project Manager Relationship Specialty Start [place] [address] [place] [address] PCP - General 06/11/09 documented as of this encounter
--- OUTSIDE RECORDS SUMMARY | 2023-07-15 14:30 | XMS_ITS | Encounter Summary ---
Author Name Unknown Organization [facility] Address [address], [place] [address] Care Team Providers Care Ground Layer Name Role Phone Loretta Ryder MD Primary Care Provider [phone] Reason for Visit * Reason Comments Abdominal Pain Flank Pain Encounter Details Date Type Department Care Team Description 03/30/2023 12:40 PM CDT Office Visit [facility] [address] [facility] [address] [place] [address] [place] [address] [place] [id number] Torsed ovary; Right lower quadrant abdominal pain Social History [...] on file documented as of this encounter Last Filed [...] Concentration - - Weight - - Height - - Body Mass Index - - documented in this encounter Progress Notes * Romelia Perez MD - 03/30/2023 12:40 PM CDT Brittney Valentin is a 37 y.o.female presents to the Urgent Care for Abdominal Pain and Flank Pain Pt presents with right sided flank pain that radiates into the right middle back and Righ side of abdomen. Pt started this morning. Pt has taken 600mg of ibuprofen at 0800 today without any relief. Pain increases when standing. Patient requests an excuse letter for work/school: No SUBJECTIVE: Brittney Valentin is a 37 y.o.female who presents with abrupt onset of right lower quadrant right mid abdominal pain today that came on while she was making breakfast. She said she woke up this morning, did not have any pain. Got out of bed, and while she was making breakfast the pain started. It has been constant. Does not related to the urge to have a bowel movement or urinate. She isnever had this before. No fevers or chills. Last week she had a mild URI, with scratchy throat runny nose and her symptoms resolved without any need for treatment. She has no history of kidney stones, has had no fevers nausea vomiting. She took ibuprofen 600 mg this morning. 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 Went into work, thinking it would go away and it has persisted. No recent trauma. Patient has a history of a laparoscopic hysterectomy at the [facility] in December of 2022, due to uterine fibroids. She said they were quite large. She still has her fallopian tubes in her ovaries. No other history of abdominal surgeries Past Medical History: Patient Active Problem List Diagnosis Acne Plantar wart Nevus Adverse Drug Reactions: Patient has no known allergies. Medications: benzoyl peroxide, clindamycin, and rabies vaccine Family History: Family History Problem Relation Age of Onset Cancer, Ovary Paternal Grandmother Cataract Paternal Grandmother Cancer, Other Maternal Grandmother bone Cataract Maternal Grandmother Coronary Artery Disease Maternal Grandfather late 60's Cataract Maternal Grandfather Cataract Paternal Grandfather Social History: Social History Tobacco Use Smoking status: Never Smokeless tobacco: Not on file Tobacco comments: smoke free home Substance Use Topics Alcohol use: No Drug use: No Review of Systems: All systems were reviewed and found to be negative except as noted above. Vital Signs: BP 112/73 (BP Location: Right Arm, BP Cuff Size: Regular) Pulse (!) 47 Comment: normal per Pt Temp 36.7 ??C (98 ??F) (Oral) Resp 16 LMP 05/29/2008 SpO2 100% OBJECTIVE: General: NAD Skin: Not examined. Head: Normocephalic. Eyes: PERRLA, full EOM. External exams normal. Ears: Normal pinnae, canals. TM's normal Nose: Patent, without deformity. Mucosa normal Throat: Moist mucous membranes without lesions, erythema, or exudate. Neck: Supple, without masses, lymphadenopathy or tenderness. Respiratory: Normal respiratory effort. Lungs are clear with good breath sounds. Heart: RR without murmurs, rubs, or gallops. Abdomen: The abdomen was flat, soft and mild right mid abdominal tenderness to palpation, without guarding rebound or masses. Bowel sounds present. Medical decision making - the patient presents with abrupt onset of mid to lower abdominal pain, with no associated symptoms such as dysuria frequency urgency, radiation to her back, nausea vomiting,fevers, no trauma, but she does have a history of a recent surgery. Patient still has her fallopiantubes and ovaries, so because of the abrupt onset, with the lack of the need to urinate, going to rule out torsed ovary 1st, and if that is negative, we will move on to CT scan to rule out kidney stone. She does not have classic kidney stones symptoms, other than the abrupt onset, and she understands the rationale behind the workup. Labs: Results for orders placed or performed in visit on 03/30/23 UA Conditional UC: Clean Catch Specimen: Clean Catch; Urine Result Value Ref Range Urine Culture Comment Urinalysis results do not meet criteria for urine culture reflex. Urine Color Yellow Urine Clarity Clear Clear Specific [place], Urine 1.015 1.005 - 1.030 PH Urine 8.5 (A) 5.0 - 8.0 Protein, Urine Qual (mg/dL) Trace Neg/Trace Glucose Urine Qual (mg/dL) Negative Negative Ketones, Urine (mg/dL) Negative Negative Urobilinogen, Urine (EU/dL) 0.2 <2.0 Bilirubin Urine Negative Negative Blood, Urine Negative Neg/Trace Nitrite Urine Negative Negative Leukocyte Est. Negative Negative Red Blood Cells 0-3 0 - 3 /HPF White Blood Cells 0-5 0 - 5 /HPF Bacteria Moderate (A) None Seen /HPF Squamous Epithelial Cells Moderate (A) None Seen, Occasional, Few /HPF Urine Source Clean Catch Complete Blood Count-W/Diff Result Value Ref Range WBC 10.5 3.5 - 10.5 x10(9)/L RBC 4.25 3.90 - 5.03 x10(12)/L Hemoglobin 13.4 12.0 - 15.5 g/dL HCT 39.1 34.9 - 44.5 % MCV 92.0 80.0 - 100.0 fL MCH 31.5 27.6 - 33.3 pg MCHC 34.3 31.5 - 35.2 g/dL RDW 12.0 11.9 - 15.5 % Platelets 269 150 - 450 x10(9)/L Neutrophil Absolute 8.9 (H) 1.7 - 7.0 10(9)/L Lymphocyte Absolute 0.9 (L) 1.0 - 4.8 10(9)/L Monocytes Absolute 0.6 0.2 - 0.9 10(9)/L Eosinophil Absolute 0.0 0.0 - 0.5 10(9)/L Basophil Absolute 0.1 0.0 - 0.3 10(9)/L Immature Gran % 0.1 0.0 - 0.5 % X-Rays: US Pelvic Complete WO EV Result Date: 03/30/2023 COMPARISON: None. TECHNIQUE: Transabdominal imaging was performed. [...] considered given acute onset of pain and i nability to tolerate transvaginal scan. Recommend SALES AND LEASING AGENT consultation for further evaluation. 2. Status post hysterectomy. Critical results called to ROMELIA PEREZ on 03/30/2023 1:11 PM. ASSESSMENT: 1. Torsed ovary 2. Right lower quadrant abdominal pain PLAN: Discussed the findings on x-ray ultrasound imaging with the patient as well as Dr. Castillo on-call for OBGYN at [facility]. They recommended emergent surgery. Patient had check with her insurance company to see what system she is in. They determined it was [employer], so she is going to drive herself across the street to [facility]. I spoke with the [facility] ER nurse, they will expect her. There are aware that the patient has a torsed ovary, will need emergent surgery. When I spoke with and by phone, she said her pain was getting a bit worse, but she is still able to drive herself there. She would not been given any pain medication here as she said it was tolerable, but given it has been a few hours, the pain has increased. However, she is comfortable driving herself across the street. Medications Prescribed this Visit None Discharge Instructions None RTC p.r.n. documented in this encounter Nursing Notes * Castillo Wise - 03/30/2023 12:40 PM CDT Brittney Valentin is a 37 y.o.female presents to the Urgent Care for Abdominal Pain and Flank Pain Pt presents with right sided flank pain that radiates into the right middle back and Righ side of abdomen. Pt started this morning. Pt has taken 600mg of ibuprofen at 0800 today without any relief. Pain increases when standing. Patient requests an excuse letter for work/school: No documented in this encounter Plan of Treatment Not on file documented as of this encounter Results * (ABNORMAL) UA Conditional UC: Clean Catch (03/30/2023 11:44 AM CDT) Urine Culture Comment Urinalysis results do not meet criteria for urine culture reflex. 03/30/2023 11:55 AM CDT [facility] Urine Color Yellow 03/30/2023 11:55 AM [facility] Urine Clarity Clear Clear 03/30/2023 11:55 AM [facility] Specific [place], Urine 1.015 1.005 - 1.030 03/30/2023 11:55 AM [facility] PH Urine 8.5(A) 5.0 - 8.0 03/30/2023 11:55 AM [facility] Protein, Urine Qual (mg/dL) Trace Neg/Trace 03/30/2023 11:55 AM [facility] Glucose Urine Qual (mg/dL) Negative Negative 03/30/2023 11:55 AM [facility] Ketones, Urine (mg/dL) Negative Negative 03/30/2023 11:55 AM [facility] Urobilinogen, Urine (EU/dL) 0.2 <2.0 03/30/2023 11:55 AM [facility] Bilirubin Urine Negative Negative 03/30/2023 11:55 AM [facility] Blood, Urine Negative Neg/Trace 03/30/2023 11:55 AM [facility] Nitrite Urine Negative Negative 03/30/2023 11:55 AM [facility] Leukocyte Est. Negative Negative 03/30/2023 11:55 AM [facility] Red Blood Cells 0-3 0 - 3 /HPF 03/30/2023 11:55 AM [facility] White Blood Cells 0-5 0 - 5 /HPF 03/30/2023 11:55 AM [facility] Bacteria Moderate(A) None Seen /HPF 03/30/2023 11:55 AM [facility] Squamous Epithelial Cells Moderate(A) None Seen, Occasional, Few /HPF 03/30/2023 11:55 AM [facility] Urine Source Clean Catch 03/30/2023 11:55 AM [facility] Urine URINE SPECIMEN COLLECTION, CLEAN CATCH / Unknown Non-blood Collection / Unknown 03/30/2023 11:44 AM CDT 03/30/2023 11:44 AM [facility] Romelia Perez MD LAB_1 [facility] [address] [place] [address], [facility] [phone] documented in this encounter Visit Diagnoses Diagnosis Torsed ovary Torsion of ovary, ovarian pedicle, or fallopian tube Right lower quadrant abdominal pain Abdominal pain, right lower quadrant documented in this encounter Care Teams Ground Layer Relationship Specialty Start [place] [address] [place] [address] PCP - General 06/11/09 documented as of this encounter
== END 2023-07-15 14:25 | disposition home or self-care (01) ==
PROVIDERS: PCP Physician Assistant; Visit Provider Family Medicine
DX: Z00.00 Encounter for general adult medical examination without abnormal findings (principal); E78.5 Hyperlipidemia, unspecified; L65.9 Nonscarring hair loss, unspecified
CPT/HCPCS: 80053; 80061; 84439; 84443

== ENCOUNTER 2023-07-22 09:04 | Outpatient (RCR) | payer OTHER, SELFPAY | END 2023-11-19 23:59 | disposition home or self-care (01) | PROVIDERS: PCP Physician Assistant; Visit Provider Family Medicine | DX: M25.561 Pain in right knee (principal); R29.898 Other symptoms and signs involving the musculoskeletal system; Z51.89 Encounter for other specified aftercare | CPT/HCPCS: 97110; 97161 ==

== ENCOUNTER 2024-07-13 09:32 | Outpatient (CLI) | payer OTHER, SELFPAY ==
--- NOTE | 2024-07-13 09:45 | CRLHL7_ITS ---
For Patients: As a result of the Cures Act, medical imaging exams and procedure reports are released immediately into your electronic medical record. You may view this report before your referring provider. If you have questions, please contact your health care provider. DIGITAL DIAGNOSTIC BILATERAL MAMMOGRAM USING TOMOSYNTHESIS AND COMPUTER-AIDED DETECTION LEFT BREAST ULTRASOUND CLINICAL HISTORY: LEFT breast lump. COMPARISON: None. TECHNIQUE: Digital BILATERAL mammogram in four projections with computer-aided detection. Tomosynthesis was used in this interpretation. Real-time ultrasound imaging of LEFT breast with imaging documentation. BREAST COMPOSITION: The breasts are heterogeneously dense, which may obscure small masses. FINDINGS: 3D CC/MLO BILATERAL mammogram images submitted. No suspicious mass or architectural distortion. No suspicious calcifications or adenopathy. Targeted LEFT breast ultrasound performed 1 o`clock 7 cm from the nipple. In this location, normal dense tissue is present. No fibrocystic change or solid mass IMPRESSION: No suspicious findings. Normal dense fibroglandular tissue LEFT breast 1 o`clock 7 cm from the nipple. RECOMMENDATIONS: Clinical follow-up. Age-appropriate screening mammography. A lay language report of this examination will be provided to the patient. BI-RADS Category 1: Negative Dictated by Skyler Lucas MD @ 07/13/2024 10:19:00 AM jj/Dictated by: Skyler Lucas MD @ 07/13/2024 10:19:00 AM (Electronically Signed)
--- NOTE | 2024-07-13 10:15 | CRLHL7_ITS ---
For Patients: As a result of the Cures Act, medical imaging exams and procedure reports are released immediately into your electronic medical record. You may view this report before your referring provider. If you have questions, please contact your health care provider. SEE DIGITAL DIAGNOSTIC BILATERAL MAMMOGRAM PERFORMED SAME DAY CRL:[email or web address]/Dictated by: Skyler Lucas MD @ 07/13/2024 10:49:00 AM (Electronically Signed)
== END 2024-07-13 09:33 | disposition home or self-care (01) ==
LOC: MAMMO 09:33
PROVIDERS: PCP Family Medicine; Visit Provider Family Medicine
DX: N63.20 Unspecified lump in the left breast, unspecified quadrant (principal); R92.333 Mammographic heterogeneous density, bilateral breasts
CPT/HCPCS: 76642; 77066; G0279

== ENCOUNTER 2024-10-19 08:27 | Outpatient (CLI) | payer OTHER, SELFPAY ==
[2024-10-19 14:16] LABS: Free T4 Free Thyroxine* 0.72 ng/dL (0.70-1.85)
[2024-10-19 14:48] LABS: Ferritin* 51.9 ng/mL (6.24-137.0)
[2024-10-22 01:40] LABS: Thyroid Stimulating Hormone 4.53 mU/L (0.27-4.20)
[2024-10-23 10:24] LABS: Sex Hormone Binding Globulin 101 nmol/L (25-122); Testosterone, Free LC-MS/MS 3.7 pg/mL (1.3-9.2); Testosterone, LC-MS/MS 47 ng/dL (9-55)
== END 2024-10-19 08:28 | disposition home or self-care (01) ==
LOC: NPINS 08:27
PROVIDERS: PCP Family Medicine; Visit Provider Physician Assistant
DX: L65.0 Telogen effluvium (principal)
CPT/HCPCS: 82728; 84270; 84402; 84403; 84439; 84443

== ENCOUNTER 2025-01-04 07:53 | Outpatient (CLI) | payer OTHER, SELFPAY | END 2025-01-04 07:54 | disposition home or self-care (01) | LOC: NFLDREF 01-09 01:35 | PROVIDERS: PCP Family Medicine; Referring Provider Family Medicine; Visit Provider Family Medicine | DX: E03.9 Hypothyroidism, unspecified (principal); R79.89 Other specified abnormal findings of blood chemistry | CPT/HCPCS: 80053; 84439; 84443; 84480; 86376 ==

== ENCOUNTER 2025-04-26 08:01 | Outpatient (CLI) | payer OTHER, SELFPAY | END 2025-04-26 08:02 | disposition home or self-care (01) | LOC: NFLDREF 04-28 17:28 | PROVIDERS: PCP Family Medicine; Referring Provider Family Medicine; Visit Provider Family Medicine | DX: R79.89 Other specified abnormal findings of blood chemistry (principal); E03.9 Hypothyroidism, unspecified | CPT/HCPCS: 80053; 84439; 84443 ==